=== PATIENT | female | born 1985 | race Caucasian/White ===

== ENCOUNTER 2016-11-27 19:50 | Emergency (ER) | payer OTHER ==
[~2016-11-27] VITALS: Ht 165.1 cm; Wt 124.7 kg
[~2016-11-27 19:50] MED LIST: ACET1TAB43 PO; ACHD5005 PO; CLIN300C3 PO; CYCL10TA9 PO; HYDR-3812 PO; HYDR1TAB8 OP; IBP800T PO; IBUP-1773 PO; METH4TAB PO; NAPR220C11 PO; PNV91TAB3 PO; SULF1TAB38 PO
--- NOTE | 2016-11-27 20:04 | ED GI ---
General Chief Complaint: Abdominal/GI Problems Stated Complaint: NAUSEA Source of Information: Patient Exam Limitations: No Limitations History of Present Illness Time Seen By Provider: 20:02 Initial Comments Patient has been nauseated all day. She is vomited twice. She denies diarrhea or abdominal pain. She states she has had problems with nausea for the past 2 weeks. She has not seen a primary care physician. She took pnwa-[id number] nausea relief without any improvement Allergies and Home Medications Allergies Coded Allergies: No Known Drug Allergies (Unverified , 01/05/10) Home Medications No Active Prescriptions or Reported Meds Review of Systems Constitutional: malaise, weakness EENTM: No Symptoms Reported Respiratory: No Symptoms Reported Cardiovascular: No Symptoms Reported Gastrointestinal: Nausea, Vomiting Endocrine: No Symptoms Reported All Other Systems Reviewed Negative Unless Noted: Yes Past Jxdohsh-Ziwnpk-Luyxei Hx Patient Social History Type Used: Cigarettes Recent Foreign Travel: No Contact w/Someone Who Travel: No Recent Hopitalizations: No Seasonal Allergies Seasonal Allergies: No Surgeries HX Surgeries: Yes (BREAST REDUCTION) Surgeries: Breast Respiratory Hx Respiratory Disorders: No Cardiovascular Hx Cardiac Disorders: No Neurological Hx Neurological Disorders: Yes Neurological Disorders: Headaches /Migraines Reproductive System Hx Reproductive Disorders: Yes (high levels of testosterone.) Female Reproductive Disorders: Ovarian Cyst, Polycystic Ovarian Dis Genitourinary Hx Genitourinary Disorders: No Gastrointestinal Hx Gastrointestinal Disorders: No Musculoskeletal Hx Musculoskeletal Disorders: Yes (HAS HAD BACK SPASM/PAIN IN PAST) Endocrine Hx Endocrine Disorders: No HEENT HX ENT Disorders: No Cancer Hx Cancer: No Psychosocial Hx Psychiatric Problems: No Integumentary HX Skin/Integumentary Disorder: No Reviewed Nursing Assessment Reviewed/Agree w Nursing PMH: Yes Family Medical History Significant Family History: No Pertinent Family Hx Physical Exam Vital Signs VS - Last 72 Hours, by Label 11/27/16 20:00 Temp 97.3 Pulse 92 Resp 18 B/P (MAP) 145/93 Pulse Ox 95 O2 Delivery Room Air Capillary Refill : General Appearance: WD/WN, mild distress HEENT: PERRL/EOMI, pharynx normal Neck: supple Respiratory: lungs clear, normal breath sounds Cardiovascular: regular rate, rhythm, no edema Gastrointestinal: non tender, soft Extremities: normal inspection Neurologic/Psychiatric: alert, normal mood/affect Skin: normal color, warm/dry Progress/Results/Core Measures Results/Orders Lab Results Laboratory Tests Test 11/27/16 20:00 11/27/16 20:06 11/27/16 21:05 Range/Units White Blood Count 12.5 H 4.3-11.0 10^3/uL Red Blood Count 4.71 4.35-5.85 10^6/uL Hemoglobin 12.9 11.5-16.0 G/DL Hematocrit 40 35-52 % Mean Corpuscular Volume 84 80-99 FL Mean Corpuscular Hemoglobin 27 25-34 PG Mean Corpuscular Hemoglobin Concent 33 32-36 G/DL Red Cell Distribution Width 14.6 H 10.0-14.5 % Platelet Count 326 130-400 10^3/uL Mean Platelet Volume 10.5 H 7.4-10.4 FL Neutrophils (%) (Auto) 87 H 42-75 % Lymphocytes (%) (Auto) 8 L 12-44 % Monocytes (%) (Auto) 4 0-12 % Eosinophils (%) (Auto) 1 0-10 % Basophils (%) (Auto) 0 0-10 % Neutrophils # (Auto) 10.9 H 1.8-7.8 X 10^3 Lymphocytes # (Auto) 1.0 1.0-4.0 X 10^3 Monocytes # (Auto) 0.6 0.0-1.0 X 10^3 Eosinophils # (Auto) 0.1 0.0-0.3 10^3/uL Basophils # (Auto) 0.0 0.0-0.1 10^3/uL Neutrophils % (Manual) 89 % Lymphocytes % (Manual) 10 % Monocytes % (Manual) 0 % Eosinophils % (Manual) 1 % Basophils % (Manual) 0 % Band Neutrophils 0 % Blood Morphology Comment NORMAL Sodium Level 138 135-145 MMOL/L Potassium Level 3.9 3.6-5.0 MMOL/L Chloride Level 107 98-107 MMOL/L Carbon Dioxide Level 22 21-32 MMOL/L Anion Gap 9 5-14 MMOL/L Blood Urea Nitrogen 8 7-18 MG/DL Creatinine 0.70 0.60-1.30 MG/DL Estimat Glomerular Filtration Rate > 60 BUN/Creatinine Ratio 11 Glucose Level 114 H 70-105 MG/DL Calcium Level 8.8 8.5-10.1 MG/DL Total Bilirubin 0.6 0.1-1.0 MG/DL Aspartate Amino Transf (AST/SGOT) 21 5-34 U/L Alanine Aminotransferase (ALT/SGPT) 34 0-55 U/L Alkaline Phosphatase 90 40-136 U/L Total Protein 6.9 6.4-8.2 G/DL Albumin 4.1 3.2-4.5 G/DL Lipase 22 8-78 U/L Serum Test, Qualitative NEGATIVE NEGATIVE Urine Color YELLOW Urine Clarity SLIGHTLY CLOUDY Urine pH 8 5-9 Urine Specific Winn 1.010 L 1.016-1.022 Urine Protein 1+ H NEGATIVE Urine Glucose (UA) NEGATIVE NEGATIVE Urine Ketones NEGATIVE NEGATIVE Urine Nitrite NEGATIVE NEGATIVE Urine Bilirubin NEGATIVE NEGATIVE Urine Urobilinogen 1 NORMAL MG/DL Urine Leukocyte Esterase 2+ H NEGATIVE Urine RBC (Auto) NEGATIVE NEGATIVE Urine RBC NONE /HPF Urine WBC 10-25 H /HPF Urine Squamous Epithelial Cells 25-50 H /HPF Urine Crystals NONE /LPF Urine Bacteria MODERATE H /HPF Urine Casts NONE /LPF Urine Mucus MODERATE H /LPF Urine Yeast FEW H /HPF Urine Culture Indicated YES My Orders Orders - SHASHA LR MD Lipase (11/27/16 20:01) Ua Culture If Indicated (11/27/16 20:01) Urine Bedside (11/27/16 20:01) Ns Iv 1000 Ml (Sodium Chloride 0.9%) (11/27/16 20:15) Prochlorperazine Injection (Compazine In (11/27/16 20:15) Diphenhydramine Injection (Benadryl Inje (11/27/16 20:15) Hcg,Qualitative Serum (11/27/16 20:23) Urine Culture (11/27/16 21:05) Medications Given in ED Current Medications Medications Dose Ordered Sig/Erendira Route Start Time Stop Time Status Last Admin Dose Admin Diphenhydramine HCl 25 mg ONCE ONCE IV 11/27/16 20:15 11/27/16 20:16 DC 11/27/16 20:10 25 MG Prochlorperazine Edisylate 10 mg ONCE ONCE IV 11/27/16 20:15 11/27/16 20:16 DC 11/27/16 20:10 10 MG Sodium Chloride 1,000 ml ONCE ONCE IV 11/27/16 20:15 11/27/16 20:16 DC 11/27/16 20:10 1,000 ML Vital Signs/I&O Vital Sign - Last 12Hours 4/23/17 20:00 Temp 97.3 Pulse 92 Resp 18 B/P (MAP) 145/93 Pulse Ox 95 O2 Delivery Room Air Progress Note : Time: 21:35 Progress Note Patient feeling much better after IV fluids and Zofran. Advised of test results. We'll treat with antibiotics and antiemetics. Follow-up primary care physician next week. Departure Impression Impression: Primary Impression: Nausea and vomiting Additional Impressions: Gastritis Urinary tract infection Disposition: HOME, SELF-CARE Condition: Stable Departure-Patient Inst. Decision time for Depature: 21:35 Referrals: [facility] (PCP/Family) Primary Care Physician Scripts Ondansetron (Zofran Odt) 4 Mg Tab.rapdis 4 MG PO Q4H Y for NAUSEA/VOMITING-1ST LINE, #10 TAB Prov: SHASHA LR MD 11/27/16 Nitrofurantoin Monohyd/M-Cryst (Macrobid 100 mg Capsule) 100 Mg Capsule 1 TAB PO BID, #6 CAP Prov: SHASHA LR MD 11/27/16 SHASHA LR MD Nov 27, 2016 20:04
[2016-11-27] MEDS ORDERED: diphenhydrAMINE 50 MG/ML INJ (BENADRYL) IV ONE (20:15)
[2016-11-27] MEDS ORDERED: NS 1000 ML IV BAG IV ONE (20:15)
[2016-11-27] MEDS ORDERED: PROCHLORPERAZINE 10 MG/2ML INJ (COMPAZINE) IV ONE (20:15)
[2016-11-27 20:16] LABS: BASOPHILS % (AUTO) 0 % (0-10); EOSINOPHILS # (AUTO) 0.1 10^3/uL (0.0-0.3); EOSINOPHILS % (AUTO) 1 % (0-10); LYMPHOCYTES % (AUTO) 8 % (12-44); MEAN CORPUSCULAR HEMOGLOBIN 27 PG (25-34); MEAN CORPUSCULAR HGB CONC 33 G/DL (32-36); MEAN CORPUSCULAR VOLUME 84 FL (80-99); MEAN PLATELET VOLUME 10.5 FL (7.4-10.4); MONOCYTES # (AUTO) 0.6 X 10^3 (0.0-1.0); MONOCYTES % (AUTO) 4 % (0-12); NEUTROPHILS # (AUTO) 10.9 X 10^3 (1.8-7.8); NEUTROPHILS % (AUTO) 87 % (42-75); PLATELET COUNT 326 10^3/uL (130-400); RED BLOOD COUNT 4.71 10^6/uL (4.35-5.85); RED CELL DISTRIBUTION WIDTH 14.6 % (10.0-14.5); WHITE BLOOD COUNT 12.5 10^3/uL (4.3-11.0)
[2016-11-27 20:34] LABS: BAND NEUTROPHILS 0 %; BASOPHILS % (MANUAL) 0 %; EOSINOPHILS % (MANUAL) 1 %; LYMPHOCYTES % (MANUAL) 10 %; NEUTROPHILS % (MANUAL) 89 %
[2016-11-27 20:39] LABS: ALANINE AMINOTRANSFERASE 34 U/L (0-55); ALBUMIN 4.1 G/DL (3.2-4.5); ANION GAP 9 MMOL/L (5-14); ASPARTATE AMINO TRANSFERASE 21 U/L (5-34); BILIRUBIN,TOTAL 0.6 MG/DL (0.1-1.0); BLOOD UREA NITROGEN 8 MG/DL (7-18); BUN/CREATININE RATIO 11; CALCIUM 8.8 MG/DL (8.5-10.1); CARBON DIOXIDE 22 MMOL/L (21-32); CHLORIDE 107 MMOL/L (98-107); GFR ESTIMATED > 60; GLUCOSE 114 MG/DL (70-105); LIPASE 22 U/L (8-78); POTASSIUM 3.9 MMOL/L (3.6-5.0); SODIUM 138 MMOL/L (135-145); TOTAL PROTEIN 6.9 G/DL (6.4-8.2)
[2016-11-27 21:14] LABS: BILIRUBIN,URINE NEGATIVE (NEGATIVE); KETONES,URINE NEGATIVE (NEGATIVE); LEUKOCYTE ESTERASE ,URINE 2+ (NEGATIVE); NITRITE,URINE NEGATIVE (NEGATIVE); PH,URINE 8 (5-9); PROTEIN,URINE 1+ (NEGATIVE); UROBILINOGEN,URINE 1 MG/DL (NORMAL)
[2016-11-27 21:22] LABS: SQUAMOUS EPITHELIAL CELL,UR 25-50 /HPF; YEAST,URINE FEW /HPF
[2016-11-27] MEDS ORDERED: NITR-65 PO (21:36)
[2016-11-27] MEDS ORDERED: ONDA4TAB8 PO (21:36)
[2016-11-27] MEDS ORDERED: RX-ONDANSETRON 4 MG ODT (ZOFRAN) PPK #4 PO STA (21:38)
[2016-11-27] MEDS ORDERED: LEVOFLOXACIN 500 MG TAB (LEVAQUIN) PO ONE (21:45)
[2016-11-27 21:48] VITALS: BP 134/88
== END 2016-11-27 21:48 | disposition home or self-care (01) ==
LOC: EDUNIT# 19:50 → ER 19:52
DX: R11.2 Nausea with vomiting, unspecified (principal); K29.70 Gastritis, unspecified, without bleeding; N39.0 Urinary tract infection, site not specified
CPT/HCPCS: 36415; 80053; 81000; 83690; 84703; 85007; 85027; 87088; 96361; 96374; 96375

== ENCOUNTER → 2017-04-03 | Outpatient (CLI) | payer OTHER ==
[~2017-04-03] MED LIST changes: +NITR-65 PO; +ONDA4TAB8 PO
--- NOTE | 2017-04-03 13:56 | Diagnostic Imaging Report ---
PROCEDURE: US Abdomen, limited. TECHNIQUE: Multiple realtime grayscale images were obtained over the abdomen in various projections. INDICATION: Right upper quadrant pain. FINDINGS: The liver is normal in size without focal lesions. There is cholelithiasis. Gallbladder wall thickness is 2.4 mm. The common bile duct is not well seen due to bowel gas nor is the pancreas. The right kidney is normal. There is no ascites. IMPRESSION: Cholelithiasis. Dictated by: Dictated on workstation # [id number]
== END ==
LOC: RAD 08:01
PROVIDERS: ATTEND Nurse Practitioner Family
DX: K80.20 Calculus of gallbladder without cholecystitis without obstruction (principal)
CPT/HCPCS: 76705

== ENCOUNTER 2017-04-11 09:42 | Outpatient (CLI) | payer OTHER ==
[~2017-04-11] VITALS: Ht 165.1 cm; Wt 111.7 kg
[2017-04-11] MEDS ORDERED: BCP PO (09:52)
[2017-04-11 09:55] VITALS: BP 137/87
[2017-04-11 10:24] LABS: BASOPHILS # (AUTO) 0.1 10^3/uL (0.0-0.1); BASOPHILS % (AUTO) 1 % (0-10); EOSINOPHILS # (AUTO) 0.2 10^3/uL (0.0-0.3); EOSINOPHILS % (AUTO) 2 % (0-10); LYMPHOCYTES # (AUTO) 2.4 X 10^3 (1.0-4.0); LYMPHOCYTES % (AUTO) 23 % (12-44); MEAN CORPUSCULAR HEMOGLOBIN 27 PG (25-34); MEAN CORPUSCULAR HGB CONC 32 G/DL (32-36); MEAN CORPUSCULAR VOLUME 84 FL (80-99); MEAN PLATELET VOLUME 10.4 FL (7.4-10.4); MONOCYTES # (AUTO) 0.8 X 10^3 (0.0-1.0); MONOCYTES % (AUTO) 7 % (0-12); NEUTROPHILS # (AUTO) 7.1 X 10^3 (1.8-7.8); NEUTROPHILS % (AUTO) 68 % (42-75); PLATELET COUNT 328 10^3/uL (130-400); RED BLOOD COUNT 4.65 10^6/uL (4.35-5.85); RED CELL DISTRIBUTION WIDTH 14.3 % (10.0-14.5); WHITE BLOOD COUNT 10.5 10^3/uL (4.3-11.0)
[2017-04-13] MEDS ORDERED: HYDR-3816 PO (16:05)
== END 2017-04-11 11:11 | disposition home or self-care (01) ==
LOC: PREOP 09:42
PROVIDERS: ATTEND Surgery
DX: Z01.812 Encounter for preprocedural laboratory examination (principal); K80.20 Calculus of gallbladder without cholecystitis without obstruction
CPT/HCPCS: 36415; 85025; 87081

== ENCOUNTER 2017-04-13 11:26 | Day surgery (SDC) | payer OTHER ==
[~2017-04-13] VITALS: Ht 165.1 cm; Wt 111.7 kg
[~2017-04-13 11:26] MED LIST changes: +BCP PO
[2017-04-13] MEDS ORDERED: LACTATED RINGERS 1,000 ML IV PRN (11:29)
--- OUTSIDE RECORDS SUMMARY | 2017-04-13 11:29 | XMS REPORT | Clinical Summary ---
Author Author [facility] Organization [facility] Address Unknown Phone Unavailable Care Team Providers Care Bottle Gauger Name Role Phone PCP Unavailable Source Comments Some departments are not documenting in the electronic medical record. If you do not see the information that you expected, contact Release of Information in the Health Information Management department at [phone] for further assistance in locating additional records.[facility] Allergies No Known Allergies Current Medications Prescription Sig. Disp. Refills Start End Date Status Date NO HOME MEDICATIONS Active Active Problems Not on file Social History Tobacco Use Types Packs/Day Years Used Date Former Smoker Cigarettes 0.5 12 Quit: 11/30/2009 Alcohol Use Drinks/Week oz/Week Comments Yes seldom Sex Assigned at Date Recorded Not on file Last Filed Vital Signs Vital Sign Reading Time Taken Blood Pressure 114/70 12/11/2009 6:00 PM CDT Pulse 61 12/11/2009 6:00 PM CDT Temperature 36.7 C (98.1 F) 12/11/2009 2:20 PM CDT Respiratory Rate - - Oxygen Saturation 96% 12/11/2009 6:00 PM CDT Inhaled Oxygen - - Concentration Weight 93.9 kg (207 lb) 12/11/2009 11:00 AM CDT Height 165.1 cm (5' 5") 12/11/2009 11:00 AM CDT Body Mass Index 34.45 12/11/2009 11:00 AM CDT Plan of Treatment Health Maintenance Due Date Last Done Comments PHYSICAL (COMPREHENSIVE) 1991 EXAM PERTUSSIS VACCINE 1995 TETANUS VACCINE 2001 CERVICAL CANCER SCREENING 2014 INFLUENZA VACCINE 04/07/2017 Results Not on filefrom Last 3 Months
[2017-04-13] MEDS ORDERED: ONDANSETRON 4 MG/2 ML (SDV) Z0FRAN ONE (12:09)
[2017-04-13] MEDS ORDERED: DEXAMETHASONE 10 MG/ML (DECADRON) 1 ML VIAL ONE (12:09)
[2017-04-13] MEDS ORDERED: LIDOCAINE PF 2% 5 ML (XYLOCAINE) VIAL ONE (12:09)
[2017-04-13] MEDS ORDERED: ROCURONIUM 50 MG/5 ML (ZEMURON) VIAL IV ONE (12:09)
[2017-04-13] MEDS ORDERED: proPOfol 200 MG/20 ML (DIPRIVAN) VIAL IV ONE (12:09)
[2017-04-13] MEDS ORDERED: LACTATED RINGERS 1,000 ML IV ONE ×2 (12:09→15:49)
[2017-04-13] MEDS ORDERED: SEVOFLURANE (ULTANE) 15 ML INHAL SOLN ONE ×4 (12:09→15:49)
[2017-04-13] MEDS ORDERED: MIDAZOLAM 2 MG/2 ML (VERSED) VIAL ONE (12:10)
[2017-04-13] MEDS ORDERED: fentaNYL INJECTION 100 MCG/2 ML AMP ONE ×2 (12:10→14:59)
--- NOTE | 2017-04-13 12:22 | Progress Note-Pre Operative ---
Pre-Operative Progress Note H&P Reviewed The H&P was reviewed, patient examined and no changes noted. Date Seen by Provider: Apr 13, 2017 Time Seen by Provider: 12:20 Date H&P Reviewed: Apr 13, 2017 Time H&P Reviewed: 12:20 Pre-Operative Diagnosis: symptomatic cholelithiasis ITA JUNG MD Apr 13, 2017 12:22 pm
[2017-04-13] MEDS ORDERED: ACETAMINOPHEN 325 MG TABLET/CAPLET (TYLENOL) PO PRN (12:30)
[2017-04-13] MEDS ORDERED: HYDROcodone/APAP 5 MG/325 MG (LORTAB) TAB PO ONE (12:30)
[2017-04-13] MEDS ORDERED: ONDANSETRON 4 MG/2 ML (SDV) Z0FRAN IVP PRN ×2 (12:30→16:00)
[2017-04-13] MEDS ORDERED: morphine INJ 10 MG/ML 1ML (SYR OR VIAL) IVP PRN (12:30)
[2017-04-13] MEDS ORDERED: NS (IVPB) 50 ML ONE (12:52)
[2017-04-13] MEDS ORDERED: ceFAZolin 1,000 MG (ANCEF) VIAL ONE (12:52)
[2017-04-13] MEDS ORDERED: BUP/EPI 0.5% 1:200,000 (MARCAINE) 10ML VIAL IJ ONE (12:56)
[2017-04-13] MEDS ORDERED: fentaNYL INJECTION 100 MCG/2 ML AMP IV ONE (13:00)
[2017-04-13 13:17] VITALS: BP 143/96
[2017-04-13] MEDS ORDERED: NEOSTIGMINE (BLOXIVERZ ) 1 MG/1ML 10 ML VIAL ONE (15:33)
[2017-04-13] MEDS ORDERED: GLYCOPYRROLATE 0.2 MG/ML (ROBINUL) 2 ML VIAL ONE (15:33)
[2017-04-13] MEDS ORDERED: morphine INJ 10 MG/ML 1ML (SYR OR VIAL) ONE (15:40)
[2017-04-13] MEDS ORDERED: KETOROLAC 30 MG/ML VIAL IVP ONE (16:00)
[2017-04-13] MEDS ORDERED: HYDROmorphone (DILAUDID) 2 MG/ML VIAL IVP PRN (16:00)
--- NOTE | 2017-04-13 16:03 | Progress Note-Post Operative ---
Post-Operative Progess Note Surgeon (s)/Benzol Operator (s) Surgeon ITA JUNG MD Benzol Operator: kurtis harris DIRECT CASTING OPERATOR Pre-Operative Diagnosis symptomatic cholelithiasis Post-Operative Diagnosis same Procedure & Operative Findings Date of Procedure 04/13/17 Procedure Performed/Findings laparoscopic cholecystectomy Anesthesia Type GET Estimated Blood Loss Estimated blood loss (mL): minimal Specimens/Packing Specimens Removed gallbladder ITA JUNG MD Apr 13, 2017 16:03
[2017-04-13] MEDS: morphine INJ 10 MG/ML 1ML (SYR OR VIAL) IVP PRN ×2 (16:05→16:13)
[2017-04-13] MEDS ORDERED: HYDR-3816 PO (16:05)
--- NOTE | 2017-04-13 16:06 | Discharge Inst-Surgical ---
D/C Lap Instructions-FABIANA New, Converted, or Re-Newed RX: RX on Chart Follow Up Appt in 2 weeks Activity as tolerated No driving for 24 hours No driving while on pain medications Incentive Spirometry use every 2 hours while awake Regular Diet Symptoms to Report: Fever over 101 degree F, Nausea/Vomiting Infection Signs and Symptoms to report: Increased redness, Foul odor of wound, Increased drainage Bathing instructions: May shower Operative Area Clean/Dry; Keep incision clean/dry If any problems/questions: Contact your physician or go to Emergency Room ITA JUNG MD Apr 13, 2017 16:06
[2017-04-13] MEDS ORDERED: HYDROmorphone (DILAUDID) 2 MG/ML VIAL ONE (16:15)
[2017-04-13 16:50] VITALS: BP 126/78
[2017-04-13] MEDS ORDERED: HYDROcodone/APAP 5 MG/325 MG (LORTAB) TAB ONE (17:19)
[2017-04-13 17:20] VITALS: BP 122/75
[2017-04-13 18:00] VITALS: BP 135/88
[2017-04-13 18:19] VITALS: BP 135/88
--- NOTE | 2017-04-13 22:29 | OPERATIVE REPORT ---
DATE OF SERVICE: 04/13/2017 ATTENDING PHYSICIAN: Dr. Jason Acuña. PREOPERATIVE DIAGNOSIS: Chronic calculus cholecystitis. POSTOPERATIVE DIAGNOSIS: Chronic calculus cholecystitis. PROCEDURE: Laparoscopic cholecystectomy. SURGEON: Dr. Jung. BRAZING FURNACE OPERATOR: Ricco Blanco APRN. ANESTHESIA: General endotracheal. ESTIMATED BLOOD LOSS: Minimal. FINDINGS: Mild chronic gallbladder wall inflammation with a single solitary stone. DISPOSITION: The patient tolerated the procedure well. INDICATIONS: The patient is a 31-year-old female who is referred over to us for epigastric as well as right upper abdominal quadrant pain with radiation towards the back. This began around three months ago and has persisted to a dull ache. She also reports associated episodes of nausea and diarrhea. She reports that the pain does occur on an intermittent basis but usually after a meal. She had an ultrasound performed and was found to have gallstones. DESCRIPTION OF PROCEDURE: The patient was brought to the operating room, laid supine on the table. After adequate IV pain and sedative medications and general endotracheal intubation, the abdomen was prepped and draped in standard surgical fashion. 0.5% Marcaine with epinephrine was then used to anesthetize the overlying skin, the left upper abdominal quadrant. A small transverse skin incision made using a 15 blade. An 0 silk suture was applied to the medial aspect of the incision for retraction and a Veress needle inserted with a low opening pressure of 0 mmHg. The Veress needle removed and a 5 mm Xcel trocar placed followed by a 5 mm 45 degree angle laparoscope visualizing the peritoneal cavity. 0.5% Marcaine with epinephrine was then used to anesthetize the overlying skin in the left upper abdominal quadrant and a small transverse skin incision made using a 15 blade. An 0 silk suture was applied to the medial aspect of the incision for retraction and a Veress needle inserted with a low opening pressure of 0 mmHg pressure. The Veress needle removed and a 5 mm Xcel trocar placed followed by a 5 mm 45 degree angle laparoscope visualizing the peritoneal cavity. A four quadrant abdominal exploration was performed. There was chronic gallbladder wall inflammation. What was visualized of the omentum, stomach and small bowel appeared normal. Under direct visualization, we then proceeded to place a supraumbilical 10 mm port after the skin and peritoneum were anesthetized using 0.5% Marcaine with epinephrine and a transverse skin incision made using a 15 blade. In a similar fashion, a 5 mm right upper abdominal quadrant port was placed. The patient was then placed in reverse Trendelenburg position as well as plane right side up, left side down. The fundus of the gallbladder was then retracted anteriorly and superiorly. The hepatoduodenal ligament was then opened using blunt dissection as well as electrocautery on the hook instrument. The entire critical view of safety was identified including the triangle of Calot as well as the cystic duct and artery going into the gallbladder as well as the liver behind the proximal gallbladder. The cystic duct and artery were then clipped proximally, distally and cut with EndoShears. The gallbladder was then dissected off the liver bed using electrocautery on the hook instrument with visualization of good hemostasis as well as no leaking ducts of Luschka. The gallbladder was removed through the 10 mm port site using an EndoCatch bag. The fascia and peritoneum to the 10 mm port site were then closed using a Arsalan-Regina device and 0 Vicryl suture. The abdomen was desufflated and remaining ports removed. All skin incisions were closed using 4-0 Monocryl running subcuticular sutures. Wounds were then cleaned and covered with Dermabond. The patient tolerated the procedure well. We will start IV normal pain medication as well as a clear liquid diet. Once she is tolerating clears and has good pain control with oral pain medication and is ambulating well, we will discharge her home. Job ID: [id number] DocumentID: [id number] Dictated Date: 04/13/2017 15:57:08 Financial Center Manager Date: 04/13/2017 20:33:09 Dictated By: ITA JUNG MD MTDD
== END 2017-04-13 18:17 | disposition home or self-care (01) ==
LOC: SDC 11:26
PROVIDERS: ATTEND Surgery
DX: K80.12 Calculus of gallbladder with acute and chronic cholecystitis without obstruction (principal); F17.210 Nicotine dependence, cigarettes, uncomplicated
CPT/HCPCS: 84703; 94664

== ENCOUNTER 2018-05-21 05:53 | Emergency (ER) | payer OTHER ==
[~2018-05-21] VITALS: Ht 165.1 cm; Wt 102.1 kg
[~2018-05-21 05:53] MED LIST changes: +HYDR-34 PO; -HYDR-3812 PO
[2018-05-21] MEDS ORDERED: HYDR-3816 (06:21)
[2018-05-21] MEDS ORDERED: KETOROLAC 60 MG/2 ML VIAL IM STA (06:38)
[2018-05-21] MEDS ORDERED: diphenhydrAMINE 50 MG/ML INJ (BENADRYL) IM ONE (06:45)
[2018-05-21] MEDS ORDERED: cefTRIAXone 1 GM/10 ML for IV (ROCEPHIN) IM ONE (06:45)
[2018-05-21] MEDS ORDERED: LIDOCAINE 1% INJ 20 ML 20 ML VIAL INJ ONE (06:45)
[2018-05-21] MEDS ORDERED: LIDOCAINE 2% VISCOUS 15 ML UDC MM ONE (06:45)
--- NOTE | 2018-05-21 06:45 | ED EENT ---
History of Present Illness General Chief Complaint: Dental Problems/Pain Stated Complaint: DENTAL PAIN Nursing Triage Note: dental pain, headache Source: patient, other (MALE S.O.O) History of Present Illness Date Seen by Provider: May 21, 2018 Time Seen by Provider: 06:30 Initial Comments PT ARRIVES VIA POV C/O DENTAL PAIN ONGOING PROBLEMS WITH MULTIPLE TEETH, BUT PAIN TO RIGHT UPPER MOLAR WITH SEVERE PAIN FOR A COUPLE OF WEEKS HAS BEEN TO [facility] A WEEK AGO, AND WAS GIVEN RX FOR AMOXIL 500 MG WHICH SHE FINISHED RX FOR HYDROCODONE CALLED IN ON Monday05/18/18--NOT HELPING, LAST DOSE 0300 THIS AM HAS FOLLOW UP APPOINTMENT 05/28/18--PT STATES FOR ROOT CANAL OR EXTRACTION STATES PAIN IS GIVING HER A HEADACHE AND MAKING THE WHOLE RIGHT SIDE OF HER FACE HURT NO SWELLING TO FACE NO FEVER STATES SHE WAS UP ALL NIGHT DUE TO PAIN PCP: DR FELIX Allergies and Home Medications Allergies Coded Allergies: No Known Drug Allergies (Unverified , 04/11/17) Patient Home Medication List Home Medication List Reviewed: Yes Review of Systems Review of Systems Constitutional: no symptoms reported Eyes: No Symptoms Reported Ears: No Symptoms Reported Nose: no symptoms reported Mouth: see HPI Throat: no symptoms reported Respiratory: no symptoms reported Cardiovascular: no symptoms reported Gastrointestinal: no symptoms reported : No (NO CONTROL) LMP: May 01, 2018 Musculoskeletal: no symptoms reported Skin: no symptoms reported Neurological: See HPI, Anxiety, Headache Hematologic/Lymphatic: No Symptoms Reported Immunological/Allergic: no symptoms reported Past Plprhyo-Khhfee-Kikhao Hx Patient Social History Alcohol Use: Occasionally Uses Recreational Drug Use: Yes (THC) Smoking Status: Current Everyday Smoker (< 1 PPD) Type Used: Cigarettes 2nd Hand Smoke Exposure: Yes Recent Foreign Travel: No Contact w/Someone Who Travel: No Recent Infectious Disease Expo: No Recent Hopitalizations: No Immunizations Up To Date Tetanus Booster (TDap): Unknown Seasonal Allergies Seasonal Allergies: No Past Medical History Surgeries: Yes (BREAST REDUCTION, RIGHT SALPINGECTOMY; 2 UPPER WISDOM TEETH REMOVED) Breast, Gallbladder Respiratory: No Cardiac: No Neurological: Yes Headaches /Migraines : No Last Menstrual Period: May 01, 2018 Reproductive Disorders: Yes (high levels of testosterone.) Female Reproductive Disorders: Menstrual Problems, Ovarian Cyst, Polycystic Ovarian Dis Sexually Transmitted Disease: No HIV/AIDS: No Genitourinary: No Gastrointestinal: Yes Gastroesophageal Reflux, Chronic Constipation, Chronic Diarrhea, Gall Bladder Disease Musculoskeletal: Yes Chronic Back Pain Endocrine: No HEENT: Yes (CHRONIC DENTAL ISSUES) Loss of Vision: Denies Hearing Impairment: Denies Cancer: No Psychosocial: No Integumentary: No Blood Disorders: No Adverse Reaction/Blood Tranf: No Family Medical History No Pertinent Family Hx Physical Exam Vital Signs Vital Signs - First Documented 05/21/18 06:10 Temp 97.5 Pulse 81 Resp 18 B/P (MAP) 191/96 (127) Pulse Ox 98 O2 Delivery Room Air Height, Weight, BMI Height: 5'5.00" Weight: 225lbs. 0oz. 102.375542qu; 41.0 BMI Method:Stated General Appearance: WD/WN, other (CRYING UNCONTROLLABLY ; ODOR OF CIGARETTES) Eyes: bilateral eye normal inspection, bilateral eye PERRL, bilateral eye EOMI Ears: bilateral ear auricle normal, bilateral ear canal normal, bilateral ear TM normal Nose: No sinus tenderness; other (CONGESTED/CLEAR DRAINAGE--CRYING) Mouth/Throat: pharynx normal, dental tenderness; No excessive drooling, No mandibular swelling, No maxillary swelling; other (MULTIPLE DENTAL CARIES AND MISSING TEETH, INCLUDING FRONT TEETH MISSING. RIGHT UPPER 2ND MOLAR WITH DECAY AND MARKED TENDERNESS, MILD ADJACENT GUM INFLAMMATION. NO FACIAL TENDERNESS, ERYTHEMA OR SWELLING) Neck: non-tender, full range of motion, supple, normal inspection; No lymphadenopathy (R), No lymphadenopathy (L) Cardiovascular: regular rate, rhythm, no murmur Respiratory: normal breath sounds Neurologic/Psychiatric: moving picture operator II-XII nml as tested, no motor/sensory deficits, alert, oriented x 3 Skin: normal color, warm/dry Progress/Results/Core Measures Results/Orders My Orders Orders - HUNTER BURGOS DO Ketorolac Injection (Toradol Injection) (05/21/18 06:38) Rocephin 1000mg Im (05/21/18 06:45) Lidocaine 1% Inj 20 Ml (Xylocaine 1% Inj (05/21/18 06:45) Lidocaine 2% Viscous 15 Ml (Xylocaine Vi (05/21/18 06:45) Diphenhydramine Injection (Benadryl Inje (05/21/18 06:45) Vital Signs/I&O 05/21/18 06:10 Temp 97.5 Pulse 81 Resp 18 B/P (MAP) 191/96 (127) Pulse Ox 98 O2 Delivery Room Air Blood Pressure Mean: 127 Departure Impression Primary Impression: Dental caries Additional Impression: Pain, dental Disposition: HOME, SELF-CARE Condition: Stable Departure-Patient Inst. Referrals: MARIIA FELIX MD (PCP/Family) Primary Care Physician Patient Instructions: Dental Pain (DC), Tooth Decay, Adult (DC) Add. Discharge Instructions: FOLLOW UP WITH DENTIST THIS WEEK FOR FURTHER CARE All discharge instructions reviewed with patient and/or family. Voiced understanding. Scripts Lidocaine HCl (Lidocaine HCl Viscous) 15 Ml Solution 1-2 ML MM Q 1-2 HOURS for Pain, #100 ML Prov: HUNTER BURGOS DO 05/21/18 Naproxen (Naproxen) 500 Mg Tablet 500 MG PO BID, #20 TAB Prov: HUNTER BURGOS DO 05/21/18 Tramadol HCl (Ultram) 50 Mg Tablet 50 MG PO Q4H, #20 TAB Prov: HUNTER BURGOS DO 05/21/18 Clindamycin HCl (Clindamycin HCl) 300 Mg Capsule 300 MG PO QID for FOR INFECTION, #40 CAP Prov: HUNTER BURGOS DO 05/21/18 HUNTER BURGOS DO May 21, 2018 06:45
[2018-05-21] MEDS ORDERED: TRAM-42 PO (06:49)
[2018-05-21] MEDS ORDERED: LIDO15SO2 MM (06:49)
[2018-05-21] MEDS ORDERED: CLIN300C11 PO (06:49)
[2018-05-21] MEDS ORDERED: NAPR-915 PO (06:49)
[2018-05-21 07:03] VITALS: BP 191/96
== END 2018-05-21 07:03 | disposition home or self-care (01) ==
LOC: EDUNIT# 05:53 → ER 05:54
DX: K02.9 Dental caries, unspecified (principal); G43.909 Migraine, unspecified, not intractable, without status migrainosus; K21.9 Gastro-esophageal reflux disease without esophagitis; F12.10 Cannabis abuse, uncomplicated; F17.210 Nicotine dependence, cigarettes, uncomplicated; Z87.448 Personal history of other diseases of urinary system; Z87.19 Personal history of other diseases of the digestive system; Z90.721 Acquired absence of ovaries, unilateral
CPT/HCPCS: 96372; 99284

== ENCOUNTER 2021-10-31 15:15 | Emergency (ER) | payer OTHER ==
[~2021-10-31] VITALS: Ht 172 cm; Wt 118.0 kg
[~2021-10-31 15:15] MED LIST changes: +CLIN-144 PO; +HYDR-34; +LIDO20SO23 MM; +NAPR-915 PO; +TRAM-42 PO
--- NOTE | 2021-10-31 16:08 | ED Lower Extremity ---
General Chief Complaint: Lower Extremity Stated Complaint: FALL 10/20 - R LEG PAIN History of Present Illness Date Seen by Provider: Oct 31, 2021 Time Seen by Provider: 15:50 Initial Comments 36-year-old female presents for right leg pain. She reports on 10/20/2021 she was walking in her door when her dog went in front of her causing her to fall. She is unsure exactly what happened to the right leg she believes it was hit on the steps. She denies any head injury at the time of the fall. She has been a ble to ambulate with no discomfort. She is most concerned with persistent ecchymosis to the lower tib-fib and ankle region on the right. She has no previous history of injuries to her right leg. Onset: other (10/20/21) Pain/Injury Location: right leg, right ankle Method of Injury: fell Allergies and Home Medications Allergies Coded Allergies: No Known Drug Allergies (Unverified , 04/11/17) Patient Home Medication List Home Medication List Reviewed: Yes Clindamycin HCl (Clindamycin HCl) 300 Mg Capsule, 300 MG PO QID Prescribed by: HUNTER BURGOS on 05/21/18648 Hydrocodone Bit/Acetaminophen (HYDROcodone/APAP 7.5/325 TAB) 1 Each Tablet, (Reported) Entered as Reported by: BARBARA HEARD on 05/21/18620 Lidocaine HCl (Lidocaine HCl Viscous) 15 Ml Solution, 1-2 ML MM Q 1-2 HOURS Prescribed by: HUNTER BURGOS on 05/21/18648 Naproxen (Naproxen) 500 Mg Tablet, 500 MG PO BID Prescribed by: HUNTER BURGOS on 05/21/18648 Tramadol HCl (Ultram) 50 Mg Tablet, 50 MG PO Q4H Prescribed by: HUNTER BURGOS on 05/21/18648 Review of Systems Constitutional: no symptoms reported, see HPI Musculoskeletal: see HPI, muscle pain (right lower leg) All Other Systems Reviewed Negative Unless Noted: Yes Past Ppkonlo-Oqurtu-Mkoxuv Hx Immunizations Up To Date Tetanus Booster (TDap): Unknown Seasonal Allergies Seasonal Allergies: No Past Medical History Surgeries: Yes (BREAST REDUCTION, RIGHT SALPINGECTOMY; 2 UPPER WISDOM TEETH REMOVED) Breast, Gallbladder Respiratory: No Cardiac: No Neurological: Yes Headaches /Migraines Reproductive Disorders: Yes (high levels of testosterone.) Female Reproductive Disorders: Menstrual Problems, Ovarian Cyst, Polycystic Ovarian Dis Sexually Transmitted Disease: No HIV/AIDS: No Genitourinary: No Gastrointestinal: Yes Gastroesophageal Reflux, Chronic Constipation, Chronic Diarrhea, Gall Bladder Disease Musculoskeletal: Yes Chronic Back Pain Endocrine: No HEENT: Yes (CHRONIC DENTAL ISSUES) Loss of Vision: Denies Hearing Impairment: Denies Cancer: No Psychosocial: No Integumentary: No Blood Disorders: No Adverse Reaction/Blood Tranf: No Family Medical History Reviewed Nursing Family Hx No Pertinent Family Hx Physical Exam Vital Signs Vital Signs - First Documented 10/31/21 10/31/21 15:52 17:05 Temp 36.3 Pulse 82 Resp 18 B/P (MAP) 190/130 (150) Pulse Ox 96 O2 Delivery Room Air Capillary Refill : Height, Weight, BMI Height: 5'5.00" Weight: 225lbs. 0oz. 102.025103ep; 41.0 BMI Method:Stated General Appearance: WD/WN, no apparent distress Cardiovascular: normal peripheral pulses, regular rate, rhythm Hips: right hip non-tender, right hip normal inspection, right hip normal range of motion Legs: right leg other (ecchymosis, anterior lower leg) Knees: right knee non-tender, right knee normal inspection, right knee normal range of motion Ankles: right ankle normal range of motion, right ankle soft tissue tenderness, right ankle swelling, right ankle other (ecchymosis) Feet: right foot non-tender, right foot normal inspection, right foot normal range of motion Neurologic/Tendon: normal sensation, normal motor functions, normal tendon functions Neurologic/Psychiatric: no motor/sensory deficits, alert, normal mood/affect, oriented x 3 Skin: ecchymosis (right lower leg. ) neg homans. Ambulates with a steady gait, can put weight on right leg, non- tender Progress/Results/Core Measures Results/Orders My Orders Orders - CLAY EWING Tibia/Fibula, Right, 2 Views (10/31/21 15:56) Urine Bedside (10/31/21 16:00) Vital Signs/I&O 10/31/21 10/31/21 15:52 17:05 Temp 36.3 Pulse 82 72 Resp 18 18 B/P (MAP) 190/130 (150) 170/114 Pulse Ox 96 98 O2 Delivery Room Air Diagnostic Imaging Diagonstic Imaging: Xray Plain Films/CT/US/NM/MRI: leg Comments NAME: ALICIA GUNN [facility] REC#: [id number] PT STATUS: REG ER : 1985 PHYSICIAN: CLAY EWING ADMIT DATE: 10/31/21/ER Signed Date of Exam:10/31/21 TIBIA/FIBULA, RIGHT, 2 VIEWS INDICATION: One week post fall, bruising. TECHNIQUE: AP and lateral views of the right tibia and fibula CORRELATION STUDY: None FINDINGS: The tibia and fibula are intact. There is no evidence for acute fracture. Limited visualized portions of the knee and ankle are unremarkable. Soft tissues are unremarkable. IMPRESSION: 1.Negative for acute bony abnormality of the leg. Dictated by: Dictated on workstation # [id number] Dict: 10/31/211700 Trans: 10/31/211701 DO [id number] Interpreted by: LELE IBARRA DO Electronically signed by: LELE IBARRA DO 10/31/211701 Reviewed: Reviewed by Me Departure Impression Primary Impression: Contusion of right lower leg, initial encounter Disposition: HOME, SELF-CARE Condition: Improved Departure-Patient Inst. Decision time for Depature: 16:15 Referrals: EPHRAIM KENDALL MD NO,LOCAL PHYSICIAN (PCP) Primary Care Physician Patient Instructions: Contusion (DC) Add. Discharge Instructions: Apply ice to your right lower leg for 20 minutes every 2 hours while awake. Use Salo wrap until bruising and swelling resolved. Elevate your right lower leg for 20 minutes every hour. You may alternate between Tylenol 650 mg and ibuprofen 600 mg every 4 hours for pain. Keep your scheduled follow-up with your nurse practitioner for your blood pressure. Return to the emergency department for new, urgent healthcare needs. All discharge instructions reviewed with patient and/or family. Voiced understanding. CLAY EWING Oct 31, 2021 16:08
--- NOTE | 2021-10-31 17:03 | Diagnostic Imaging Report ---
INDICATION: One week post fall, bruising. TECHNIQUE: AP and lateral views of the right tibia and fibula CORRELATION STUDY: None FINDINGS: The tibia and fibula are intact. There is no evidence for acute fracture. Limited visualized portions of the knee and ankle are unremarkable. Soft tissues are unremarkable. IMPRESSION: 1.Negative for acute bony abnormality of the leg. Dictated by: Dictated on workstation # [id number]
[2021-10-31 17:05] VITALS: BP 170/114
== END 2021-10-31 17:05 | disposition home or self-care (01) ==
LOC: EDUNIT# 15:15 → ER 15:16
DX: S80.11XA Contusion of right lower leg, initial encounter (principal); W22.8XXA Striking against or struck by other objects, initial encounter
CPT/HCPCS: 73590; 84703

== ENCOUNTER 2022-01-07 13:52 | Emergency (ER) | payer OTHER ==
[~2022-01-07] VITALS: Ht 167.7 cm; Wt 114.8 kg
[~2022-01-07 13:52] MED LIST changes: +ACET-11 PO; -ACET1TAB43 PO
[2022-01-07] MEDS ORDERED: CYCLOBENZAPRINE 10 MG (FLEXERIL) TAB PO STA (14:16)
--- NOTE | 2022-01-07 14:23 | ED Back Pain ---
General Chief Complaint: Back Problems Stated Complaint: BACK PAIN Source of Information: Patient Exam Limitations: No Limitations History of Present Illness Date Seen by Provider: Jan 07, 2022 Time Seen by Provider: 13:53 Initial Comments 36-year-old female with past medical history of intermittent chronic back pain coming in due to low back pain. This episode started about 2 weeks ago, worsened overnight. It sharp, radiates down her right leg just to the knee. Denies any trauma. Feels similar to prior episodes which have happened over a dozen times. He tried hydrocodone and a Xanax last night to help get to sleep which belonged to one of her friends. She said this did help. Denies any fever, midline tenderness, trauma, history of diabetes, no back surgeries, no problems with bowel or bladder. She ambulates but with pain. She is otherwise denying any other acute complaints. Allergies and Home Medications Allergies Coded Allergies: No Known Drug Allergies (Unverified , 04/11/17) Patient Home Medication List Home Medication List Reviewed: Yes Clindamycin HCl (Clindamycin HCl) 300 Mg Capsule, 300 MG PO QID Prescribed by: HUNTER BURGOS on 05/21/18648 Hydrocodone Bit/Acetaminophen (HYDROcodone/APAP 7.5/325 TAB) 1 Each Tablet, (Reported) Entered as Reported by: BARBARA HEARD on 05/21/18620 Lidocaine HCl (Lidocaine HCl Viscous) 15 Ml Solution, 1-2 ML MM Q 1-2 HOURS Prescribed by: HUNTER BURGOS on 05/21/18648 Naproxen (Naproxen) 500 Mg Tablet, 500 MG PO BID Prescribed by: HUNTER BURGOS on 05/21/1849 Tramadol HCl (Ultram) 50 Mg Tablet, 50 MG PO Q4H Prescribed by: HUNTER BURGOS on 05/21/18648 Review of Systems Constitutional: No chills, No fever EENTM: No blurred vision Respiratory: no symptoms reported Cardiovascular: no symptoms reported Gastrointestinal: no symptoms reported Genitourinary: no symptoms reported Musculoskeletal: back pain Skin: no symptoms reported Psychiatric/Neurological: No Symptoms Reported All Other Systems Reviewed Negative Unless Noted: Yes Past Plvstja-Kteqfk-Omuwsi Hx Patient Social History Use of E-Cig and/or Vaping dev: Yes E-Cig or Vaping type used: Nicotine Immunizations Up To Date Tetanus Booster (TDap): Unknown Seasonal Allergies Seasonal Allergies: No Past Medical History Surgeries: Yes (BREAST REDUCTION, RIGHT SALPINGECTOMY; 2 UPPER WISDOM TEETH REMOVED) Breast, Gallbladder Respiratory: No Cardiac: No Neurological: Yes Headaches /Migraines Reproductive Disorders: Yes (high levels of testosterone.) Female Reproductive Disorders: Menstrual Problems, Ovarian Cyst, Polycystic Ovarian Dis Sexually Transmitted Disease: No HIV/AIDS: No Genitourinary: No Gastrointestinal: Yes Gastroesophageal Reflux, Chronic Constipation, Chronic Diarrhea, Gall Bladder Disease Musculoskeletal: Yes Chronic Back Pain Endocrine: No HEENT: Yes (CHRONIC DENTAL ISSUES) Loss of Vision: Denies Hearing Impairment: Denies Cancer: No Psychosocial: No Integumentary: No Blood Disorders: No Adverse Reaction/Blood Tranf: No Family Medical History No Pertinent Family Hx Physical Exam Vital Signs Capillary Refill : Height, Weight, BMI Height: 5'5.00" Weight: 225lbs. 0oz. 102.128501ls; 39.00 BMI Method:Stated General Appearance: No Apparent Distress, WD/WN HEENT: PERRL/EOMI, Normal ENT Inspection, Pharynx Normal Neck: Full Range of Motion, Normal Inspection, Non Tender, Supple Cardiovascular: Regular Rate, Rhythm, No Edema, Normal Peripheral Pulses Respiratory: Chest Non Tender, Lungs Clear, Normal Breath Sounds, No Accessory Muscle Use, No Respiratory Distress Gastrointestinal: Normal Bowel Sounds, Non Tender, Soft; No Distended, No Guarding Back: Normal Inspection, No CVA Tenderness, No Vertebral Tenderness, Other (right sided paravertebral tenderness, positive straight leg test, negative reverse straight leg test) Extremity: Normal Capillary Refill, Normal Inspection, Normal Range of Motion, Non Tender, No Calf Tenderness Neurologic/Psychiatric: Alert, No Motor/Sensory Deficits, Normal Mood/Affect Skin: Normal Color, Warm/Dry Lymphatic: No Adenopathy Progress/Results/Core Measures Results/Orders My Orders Orders - CHERRY MENDOZA MD Cyclobenzaprine Tablet (Flexeril Tablet) (01/07/22 14:16) Ketorolac Injection (Toradol Injection) (01/07/22 14:30) Acetaminophen Tablet (Tylenol Tablet) (01/07/22 14:30) Gabapentin Capsule/Tablet (Neurontin Cap (01/07/22 14:30) Progress Progress Note : Progress Note 36-year-old female coming in for acute on chronic low back pain. ABCs were intact and vitals were stable on presentation. She has no red flags for low back pain. In the absence of trauma we will forego any imaging. Neurologic exam is normal with normal bowel and bladder function. We will treat her symptomatically. She says steroid service helped in the past, we will prescribe, but I told her to be careful not to get this prescribed too often given the side effects. She is agreeable to this. I believe she is stable for discharge with outpatient follow-up. She was sent home with strict return precautions Departure Impression Primary Impression: Lumbar radiculopathy Disposition: HOME, SELF-CARE Condition: Stable Departure-Patient Inst. Decision time for Depature: 14:22 Referrals: VALERIE,LOCAL PHYSICIAN (PCP) Primary Care Physician SERVANDO CAMPOS APRN (Family) Primary Care Physician Patient Instructions: Radiculopathy (DC) Add. Discharge Instructions: Try to do some gentle stretching at home. Continue to use the heating pad which can help. I sent some lidocaine patches where you can put where you hurt most. Do not use heating pad if he has a patch on since she will have less ability to feel if you are getting burned. I have also sent some other medications for you to use if needed. Follow-up with your regular doctor if things are not improving in the next couple weeks. I suspect he will feel much better here shortly. Scripts Methylprednisolone (Methylprednisolone Dose Pack) 4 Mg Tab.ds.pk 4 MG PO UD for 6 Days, #21 PKG PER DOSE PACK INSTRUCTIONS Prov: CHERRY MENDOZA MD 01/07/22 Ibuprofen (Ibuprofen) 600 Mg Tablet 600 MG PO Q6H PRN for PAIN-MILD for 7 Days, #28 TAB Prov: CHERRY MENDOZA MD 01/07/22 Cyclobenzaprine HCl (Cyclobenzaprine HCl) 10 Mg Tablet 10 MG PO BID PRN for SPASMS for 7 Days, #14 TAB Prov: CHERRY MENDOZA MD 01/07/22 Tramadol HCl (Tramadol HCl) 50 Mg Tablet 50 MG PO Q6H PRN for PAIN for 3 Days, #12 TAB 0 Refills Prov: CHERRY MENDOZA MD 01/07/22 Lidocaine (Lidocaine 5% Patch) 5 % Adh..patch 1 EACH TP Q12H PRN for Neuropathic pain MDD 2 for 7 Days, #14 PATCH 2 patches max for 12 hours, then 12 hours patch-free period. Prov: CHERRY MENDOZA MD 01/07/22 Work/School Note: Work Release Form Date Seen in the Emergency Department: Jan 06, 2022 Return to Work: Jan 09, 2022 Restrictions: No Restrictions CHERRY MENDOZA MD Jan 07, 2022 14:23
[2022-01-07] MEDS ORDERED: METH4TAB10 PO (14:24)
[2022-01-07] MEDS ORDERED: IBUP-1773 PO (14:24)
[2022-01-07] MEDS ORDERED: TRM50T PO (14:24)
[2022-01-07] MEDS ORDERED: CYCL10TA25 PO (14:24)
[2022-01-07] MEDS ORDERED: LIDO700A45 TP (14:24)
[2022-01-07] MEDS ORDERED: GABAPENTIN 300 MG (NEURONTIN) CAP PO ONE (14:30)
[2022-01-07] MEDS ORDERED: KETOROLAC 30 MG/ML VIAL IM ONE (14:30)
[2022-01-07] MEDS ORDERED: ACETAMINOPHEN 500 MG TAB (TYLENOL) PO ONE (14:30)
[2022-01-07 15:00] VITALS: BP 147/95
== END 2022-01-07 14:37 | disposition home or self-care (01) ==
LOC: EDUNIT# 13:52 → ER 13:53
DX: M54.16 Radiculopathy, lumbar region (principal)
CPT/HCPCS: 99284

== ENCOUNTER 2022-05-12 19:26 | Observation (INO) | payer OTHER ==
[~2022-05-12] VITALS: Ht 165.1 cm; Wt 115.4 kg
[~2022-05-12 19:26] MED LIST changes: +CYCL10TA25 PO; +LIDO700A45 TP; +METH4TAB10 PO; +TRM50T PO
[2022-05-12] MEDS ORDERED: NITROGLYCERIN 0.4 MG SL TABS BTL 25'S SL PRN ×2 (19:30→23:45)
[2022-05-12] MEDS ORDERED: ASPIRIN 81 MG CHEW (CHILDREN'S ASA) PO ONE (19:30)
[2022-05-12 19:47] LABS: BASOPHILS # (AUTO) 0.1 10^3/uL (0.0-0.1); BASOPHILS % (AUTO) 1 % (0-10); EOSINOPHILS # (AUTO) 0.2 10^3/uL (0.0-0.3); EOSINOPHILS % (AUTO) 1 % (0-10); HEMATOCRIT 45 % (35-52); HEMOGLOBIN 14.9 g/dL (11.5-16.0); LYMPHOCYTES # (AUTO) 3.2 10^3/uL (1.0-4.0); LYMPHOCYTES % (AUTO) 22 % (12-44); MEAN CORPUSCULAR HEMOGLOBIN 29 pg (25-34); MEAN CORPUSCULAR HGB CONC 33 g/dL (32-36); MEAN CORPUSCULAR VOLUME 88 fL (80-99); MEAN PLATELET VOLUME 10.3 fL (9.0-12.2); MONOCYTES % (AUTO) 6 % (0-12); NEUTROPHILS # (AUTO) 10.4 10^3/uL (1.8-7.8); NEUTROPHILS % (AUTO) 70 % (42-75); PLATELET COUNT 345 10^3/uL (130-400); WHITE BLOOD COUNT 14.9 10^3/uL (4.3-11.0)
[2022-05-12] MEDS ORDERED: NITROGLYCERIN 2% OINT 1 GM UNIT DOSE PACKET TOP ONE (20:00)
[2022-05-12 20:03] LABS: ALANINE AMINOTRANSFERASE 45 U/L (0-55); ALBUMIN 4.6 GM/DL (3.2-4.5); ALKALINE PHOSPHATASE 101 U/L (40-136); AMYLASE 48 U/L (25-125); BILIRUBIN,TOTAL 0.5 MG/DL (0.1-1.0); BUN/CREATININE RATIO 9; CALCIUM 9.9 MG/DL (8.5-10.1); CARBON DIOXIDE 21 MMOL/L (21-32); CHLORIDE 103 MMOL/L (98-107); CREATINE KINASE 47 U/L (29-168); CREATININE SERUM 0.98 MG/DL (0.60-1.30); GFR ESTIMATED 76; GLUCOSE 118 MG/DL (70-105); LIPASE 28 U/L (8-78); MAGNESIUM 2.1 MG/DL (1.6-2.4); POTASSIUM 3.9 MMOL/L (3.6-5.0); SODIUM 139 MMOL/L (135-145); TOTAL PROTEIN 8.2 GM/DL (6.4-8.2)
[2022-05-12 20:12] LABS: CREATINE KINASE MB 0.3 NG/ML (<6.6)
--- NOTE | 2022-05-12 20:26 | Diagnostic Imaging Report ---
EXAM: CHEST 1 VIEW, AP/PA ONLY INDICATION: Chest pain. COMPARISON: None. FINDINGS: Normal heart size and central pulmonary vascularity. No focal pulmonary opacity. No pleural effusion or pneumothorax. No acute osseous findings. IMPRESSION: No acute cardiopulmonary findings. Dictated by: Dictated on workstation # [id number]
[2022-05-12] MEDS ORDERED: HOLD METFORMIN - RECEIVED CONTRAST 20 ML VIAL IV SCH (20:45)
[2022-05-12] MEDS ORDERED: IOHEXOL 350 MG/ML 100 ML (OMNIPAQUE 350) VIAL IV ONE (20:45)
[2022-05-12] MEDS ORDERED: hydrALAZINE (APESOLINE) 20 MG/ML VIAL IV ONE (20:45)
[2022-05-12] MEDS ORDERED: CATHETER FLUSH 10 ML SYR IV PRN (20:45)
[2022-05-12 20:58] LABS: AMPHETAMINE SCREEN, URINE NEGATIVE (NEGATIVE); BARBITURATE SCREEN URINE NEGATIVE (NEGATIVE); BENZODIAZEPINES SCREEN URINE NEGATIVE (NEGATIVE); CANNABINOID SCREEN, URINE POSITIVE (NEGATIVE); COCAINE SCREEN URINE NEGATIVE (NEGATIVE); METHADONE STAT NEGATIVE (NEGATIVE); OPIATE SCREEN URINE NEGATIVE (NEGATIVE); OXYCODONE STAT NEGATIVE (NEGATIVE); PROPOXYPHENE STAT NEGATIVE (NEGATIVE); TRICYCLIC ANTIDEPRESSANTS SCRE NEGATIVE (NEGATIVE)
--- NOTE | 2022-05-12 21:13 | Diagnostic Imaging Report ---
PROCEDURE: CT angiography of the chest with contrast. TECHNIQUE: Multiple contiguous axial images were obtained through the chest after uneventful bolus administration of intravenous contrast. 3D reconstructed CTA MIP acquisitions were also performed. Auto Exposure Controls were utilized during the CT exam to meet ALARA standards for radiation dose reduction. INDICATION: Chest pain. Shortness of breath. COMPARISON: Chest radiograph 05/12/2022. FINDINGS: Examination mildly limited by motion. No pulmonary artery filling defect. Normal caliber thoracic aorta. Normal heart size. No pericardial effusion. No mediastinal, hilar or axillary lymphadenopathy. The lungs are clear. No pleural effusion or pneumothorax. Osseous structures are intact. No acute finding in the visualized upper abdomen. Cholecystectomy. IMPRESSION: 1. No pulmonary emboli. 2. No acute CT finding in the chest. Dictated by: Dictated on workstation # [id number]
--- NOTE | 2022-05-12 21:22 | ED Cardiac General ---
History of Present Illness General Chief Complaint: Chest Pain Stated Complaint: CHEST PAIN Nursing Triage Note: PT TO RM 6 WITH CC OF CHEST PAIN THAT GOES DOWN HER L ARM WITH SOB. PT REPROTS WAS AT [employer]LLY[employer]ALL GAME AND HAD A YEE. PT TOOK MEDICINE FROM FRIEND AT GAME AND BEGAN TO HAVE CP. PT RATES CP /10 AND STATES NO HEART HX. Source: patient History of Present Illness Date Seen by Provider: May 12, 2022 Time Seen by Provider: 19:31 Initial Comments PT ARRIVES VIA POV WITH MALE STATES THAT AROUND 1800 SHE WAS AT A VOLLEYBALL GAME, AND HAD A HEADACHE, SOMEONE GAVE HER A SUMATRIPTAN ( PT HAS NEVER TAKEN BEFORE, AND NOT PRESCRIBED TO HER) AND PT IMMEDIATELY BEGAN HAVING SEVERE CHEST PAIN IN MID AND LEFT UPPER CHEST, RADIATING INTO HER BACK AND DOWN HER LEFT ARM EDWARDO IS SEVERE AT TIMES, RATES 6-7/10 NOW. PAIN WAXES AND WANES BUT DOES NOT GO AWAY. + SHORTNESS OF BREATH + SWEATS + DIZZINESS NO NAUSEA/VOMITING NO PARESTHESIAS OR MOTOR DEFICITS NO VISION CHANGES HEADACHE IS GONE NOW. OTHER SYMPTOMS CONTINUE NO FEVER OR RECENT ILLNESS PT IS NOT COVID OR FLU VACCINATED. PT STATES SHE IS SUPPOSED TO TAKE BLOOD PRESSURE MEDICATION, BUT DOES NOT TAKE IT. DOES NOT KNOW NAME OF MEDICATION OR HOW LONG IT HAS BEEN SINCE SHE HAS TAKEN ANY--STATES 'IT'S BEEN AWHILE" LMP 04/13/22. NORMAL. 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 KENDALL Allergies and Home Medications Allergies Coded Allergies: No Known Drug Allergies (Unverified , 04/11/17) Patient Home Medication List Home Medication List Reviewed: Yes Atorvastatin Calcium (Lipitor) 40 Mg Tablet, 40 MG PO HS Prescribed by: LIN GARCIA on 05/13/22 1059 Losartan Potassium (Losartan Potassium) 50 Mg Tablet, 50 MG PO 0930 Prescribed by: LIN GARCIA on 05/13/22 1059 Discontinued Medications Clindamycin HCl (Clindamycin HCl) 300 Mg Capsule, 300 MG PO QID Prescribed by: HUNTER BURGOS on 05/21/18 0649 Cyclobenzaprine HCl (Cyclobenzaprine HCl) 10 Mg Tablet, 10 MG PO BID PRN for SPASMS Prescribed by: CHERRY MENDOZA on 01/07/22 142 Hydrocodone Bit/Acetaminophen (HYDROcodone/APAP 7.5/325 TAB) 1 Each Tablet, (Rep orted) Entered as Reported by: BARBARA HEARD on 05/21/18620 Ibuprofen (Ibuprofen) 600 Mg Tablet, 600 MG PO Q6H PRN for PAIN-MILD Prescribed by: CHERRY MENDOZA on 01/07/22 142 Lidocaine (Lidocaine 5% Patch) 5 % Adh..patch, 1 EACH TP Q12H PRN for Neuropathic pain Prescribed by: CHERRY MENDOZA on 01/07/22 142 Lidocaine HCl (Lidocaine HCl Viscous) 15 Ml Solution, 1-2 ML MM Q 1-2 HOURS Prescribed by: HUNTER BURGOS on 05/21/18648 Methylprednisolone (Methylprednisolone Dose Pack) 4 Mg Tab.ds.pk, 4 MG PO UD Prescribed by: CHERRY MENDOZA on 01/07/22 142 Naproxen (Naproxen) 500 Mg Tablet, 500 MG PO BID Prescribed by: HUNTER BURGOS on 05/21/18648 Tramadol HCl (Ultram) 50 Mg Tablet, 50 MG PO Q4H Prescribed by: HUNTER BURGOS on 05/21/18648 Tramadol HCl (Tramadol HCl) 50 Mg Tablet, 50 MG PO Q6H PRN for PAIN Prescribed by: CHERRY MENDOZA on 01/07/221424 Review of Systems Review of Systems Constitutional: No chills, No diaphoresis; dizziness; No fever Respiratory: See HPI; Denies Cough; Shortness of Air Cardiovascular: See HPI, Chest Pain; Denies Edema, Denies Irregular Heart Rate; Lightheadedness; Denies Palpitations, Denies Syncope Gastrointestinal: No Symptoms Reported; Denies Abdominal Pain, Denies Diarrhea, Denies Nausea, Denies Vomiting Genitourinary: No Symptoms Reported Musculoskeletal: see HPI, back pain Skin: no symptoms reported Psychiatric/Neurological: See HPI, Anxiety, Headache; Denies Numbness, Denies Paresthesia, Denies Seizure, Denies Tingling, Denies Tremors, Denies Weakness Endocrine: No Symptoms Reported Hematologic/Lymphatic: No Symptoms Reported Past Gzfbdbp-Dfxnxi-Ardhog Hx Patient Social History Tobacco Use?: Yes Smoking Status: Former Smoker Use of E-Cig and/or Vaping dev: Yes E-Cig or Vaping type used: Nicotine Use of E-Cig and/or Vaping Paul: Current Everyday User Substance use?: Yes Substance type: Marijuana Substance frequency: Daily Alcohol Use?: Yes Alcohol Frequency: Once in a while Pt feels they are or have been: No Immunizations Up To Date Tetanus Booster (TDap): Unknown Seasonal Allergies Seasonal Allergies: No Past Medical History Surgery/Hospitalization HX: TUBAL, Surgeries: Yes (BREAST REDUCTION, RIGHT SALPINGECTOMY; 2 UPPER WISDOM TEETH REMOVED) Breast, Gallbladder Respiratory: No Cardiac: Yes (BUT DOES NOT TAKE PRESCRIBED MEDICATION) Hypertension Neurological: Yes Headaches /Migraines : No Reproductive Disorders: Yes (high levels of testosterone.; RIGHT SALPINGECTOMY FOR ECTOPIC ) Female Reproductive Disorders: Menstrual Problems, Ovarian Cyst, Polycystic Ovarian Dis Sexually Transmitted Disease: No HIV/AIDS: No Genitourinary: No Gastrointestinal: Yes (S/P ROSA) Gastroesophageal Reflux, Chronic Constipation, Chronic Diarrhea, Gall Bladder Disease Musculoskeletal: Yes Chronic Back Pain Endocrine: No HEENT: Yes (CHRONIC DENTAL ISSUES) Loss of Vision: Denies Hearing Impairment: Denies Cancer: No Psychosocial: No Integumentary: No Blood Disorders: No Adverse Reaction/Blood Tranf: No Family Medical History No Pertinent Family Hx Physical Exam Vital Signs Vital Signs - First Documented 05/12/22 19:31 Temp 36.0 Pulse 66 Resp 20 B/P (MAP) 226/133 (164) Pulse Ox 95 O2 Delivery Room Air Capillary Refill : Less Than 3 Seconds Height, Weight, BMI Height: 5'5.00" Weight: 225lbs. 0oz. 102.803105fb; 41.00 BMI Method:Stated General Appearance: WD/WN, Anxious, Obese, Other (CRYING UNCONTROLLABLY, ANXIOUS AND HYPERVENTILATING ON ARRIVAL. ) Neck: Normal Inspection Respiratory: Chest Non Tender, Normal Breath Sounds, No Accessory Muscle Use, No Respiratory Distress Cardiovascular: Regular Rate, Rhythm, No Edema, No JVD, No Murmur, Normal Peripheral Pulses Gastrointestinal: Non Tender, Soft Extremity: Normal Capillary Refill, Normal Inspection, Normal Range of Motion, Non Tender, No Calf Tenderness, No Pedal Edema Neurologic/Psychiatric: Alert, Oriented x3, No Motor/Sensory Deficits, teaseler II- XII Norm as Tested Skin: Normal Color, Warm/Dry; No Rash Progress/Results/Core Measures Results/Orders Lab Results Laboratory Tests Test 05/12/22 19:36 05/12/22 19:42 05/12/22 20:35 Range/Units White Blood Count 14.9 H 4.3-11.0 10^3/uL Red Blood Count 5.07 3.80-5.11 10^6/uL Hemoglobin 14.9 11.5-16.0 g/dL Hematocrit 45 35-52 % Mean Corpuscular Volume 88 80-99 fL Mean Corpuscular Hemoglobin 29 25-34 pg Mean Corpuscular Hemoglobin Concent 33 32-36 g/dL Red Cell Distribution Width 12.8 10.0-14.5 % Platelet Count 345 130-400 10^3/uL Mean Platelet Volume 10.3 9.0-12.2 fL Immature Granulocyte % (Auto) 0 % Neutrophils (%) (Auto) 70 42-75 % Lymphocytes (%) (Auto) 22 12-44 % Monocytes (%) (Auto) 6 0-12 % Eosinophils (%) (Auto) 1 0-10 % Basophils (%) (Auto) 1 0-10 % Neutrophils # (Auto) 10.4 H 1.8-7.8 10^3/uL Lymphocytes # (Auto) 3.2 1.0-4.0 10^3/uL Monocytes # (Auto) 1.0 0.0-1.0 10^3/uL Eosinophils # (Auto) 0.2 0.0-0.3 10^3/uL Basophils # (Auto) 0.1 0.0-0.1 10^3/uL Immature Granulocyte # (Auto) 0.1 0.0-0.1 10^3/uL Prothrombin Time 13.0 12.2-14.7 SEC INR Comment 1.0 0.8-1.4 Activated Partial Thromboplast Time 33 24-35 SEC D-Dimer 0.70 H 0.00-0.49 UG/ML Sodium Level 139 135-145 MMOL/L Potassium Level 3.9 3.6-5.0 MMOL/L Chloride Level 103 98-107 MMOL/L Carbon Dioxide Level 21 21-32 MMOL/L Anion Gap 15 H 5-14 MMOL/L Blood Urea Nitrogen 9 7-18 MG/DL Creatinine 0.98 0.60-1.30 MG/DL Estimat Glomerular Filtration Rate 76 BUN/Creatinine Ratio 9 Glucose Level 118 H 70-105 MG/DL Calcium Level 9.9 8.5-10.1 MG/DL Corrected Calcium 8.5-10.1 MG/DL Magnesium Level 2.1 1.6-2.4 MG/DL Total Bilirubin 0.5 0.1-1.0 MG/DL Aspartate Amino Transf (AST/SGOT) 26 5-34 U/L Alanine Aminotransferase (ALT/SGPT) 45 0-55 U/L Alkaline Phosphatase 101 40-136 U/L Total Creatine Kinase 47 29-168 U/L Creatine Kinase MB 0.3 <6.6 NG/ML Myoglobin 17.7 10.0-92.0 NG/ML Troponin I < 0.028 <0.028 NG/ML B-Type Natriuretic Peptide 32.1 <100.0 PG/ML Total Protein 8.2 6.4-8.2 GM/DL Albumin 4.6 H 3.2-4.5 GM/DL Amylase Level 48 25-125 U/L Lipase 28 8-78 U/L Serum Test, Qualitative NEGATIVE NEGATIVE Serum Alcohol < 10 <10 MG/DL Influenza Type A (RT-PCR) Not Detected Not Detecte Influenza Type B (RT-PCR) Not Detected Not Detecte SARS-CoV-2 RNA (RT-PCR) Not Detected Not Detecte Urine Opiates Screen NEGATIVE NEGATIVE Urine Oxycodone Screen NEGATIVE NEGATIVE Urine Methadone Screen NEGATIVE NEGATIVE Urine Propoxyphene Screen NEGATIVE NEGATIVE Urine Barbiturates Screen NEGATIVE NEGATIVE Ur Tricyclic Antidepressants Screen NEGATIVE NEGATIVE Urine Phencyclidine Screen NEGATIVE NEGATIVE Urine Amphetamines Screen NEGATIVE NEGATIVE Urine Methamphetamines Screen NEGATIVE NEGATIVE Urine Benzodiazepines Screen NEGATIVE NEGATIVE Urine Cocaine Screen NEGATIVE NEGATIVE Urine Cannabinoids Screen POSITIVE H NEGATIVE My Orders Orders - HUNTER BURGOS K DO Cbc With Automated Diff (05/12/22 19:30) Magnesium (05/12/22 19:30) Chest 1 View, Ap/Pa Only (05/12/22 19:30) Ekg Tracing (05/12/22 19:30) Comprehensive Metabolic Panel (05/12/22 19:30) Myoglobin Serum (05/12/22 19:30) Protime With Inr (05/12/22 19:30) Partial Thromboplastin Time (05/12/22 19:30) O2 (05/12/22 19:30) Monitor-Rhythm Ecg Trace Only (05/12/22 19:30) Ed Iv/Invasive Line Start (05/12/22 19:30) Creatine Kinase (05/12/22:30) Creatine Kinase Mb (05/12/22:30) Lipase (05/12/22 19:30) Amylase (05/12/22 19:30) Bnp Lucretia (05/12/22:30) Fibrin Degradation Products (05/12/22:30) Troponin I Lucretia (05/12/22 19:30) Nitroglycerin 0.4 Mg Btl 25's (Nitrostat (05/12/22 19:30) Aspirin Chewable Tablet (Baby Aspirin Ch (05/12/22 19:30) Alcohol (05/12/22:30) Drug Screen Stat (Urine) (05/12/22:30) Hcg,Qualitative Serum (05/12/22:30) Covid 19 Inhouse Test (05/12/22 19:40) Influenza A And B By Pcr (05/12/22 19:40) Isolation Central Supply Req (05/12/22 19:40) Nitroglycerin Ointment (Nitrobid Ointme (05/12/22 20:00) Hydralazine Injection (Apresoline Inject (05/12/22 20:45) Ct Angio Chest W (05/12/22 20:42) Iohexol Injection (Omnipaque 350 Mg/Ml 1 (05/12/22 20:45) Received Contrast (Hold Metformin- Contr (05/12/22 20:45) Sodium Chloride Flush (Catheter Flush Sy (05/12/22 20:45) Medications Given in ED Vital Signs/I&O 05/12/22 19:31 Temp 36.0 Pulse 66 Resp 20 B/P (MAP) 226/133 (164) Pulse Ox 95 O2 Delivery Room Air Blood Pressure Mean: 164 Progress Progress Note : Progress Note BP ON ARRIVAL 226/133 PT EVENTUALLY CALMED, AND PT IS NO LONGER HYPERVENTILATING OR CRYING. BLOOD PRESSURE REMAINED ELEVATED GIVEN ASPIRIN AND NITROPASTE APPLIED FOR CHEST PAIN AND ELEVATED BLOOD PRESSURE CHEST PAIN RESOLVED, STILL HAS VERY SLIGHT ACHING IN HER BACK AND HER LEFT ARM FEELS A LITTLE HEAVY, BUT NO PAIN IN ARM NO LONGER FEELS SHORT OF BREATH BLOOD PRESSURE REMAINED ELEVATED, GIVEN HYDRALAZINE WITHOUT IMPROVEMENT STARTED ON CARDENE DRIP PT DID NOT HAVE ANY CHEST PAIN FOR REMAINDER OF ER STAY SHORTNESS OF BREATH RESOLVED NO COMPLAINTS OF HEADACHE AT ANY TIME NO NEUROLOGICAL SYMPTOMS AT ANY TIME DURING ER STAY Initial ECG Impression Date: May 12, 2022 Initial ECG Impression Time: 19:36 Initial ECG Rate: 66 Initial ECG Rhythm: Normal Sinus Diagnostic Imaging Comments CXR--PER RADIOLOGIST REPORT FINDINGS: Normal heart size and central pulmonary vascularity. No focal pulmonary opacity. No pleural effusion or pneumothorax. No acute osseous findings. IMPRESSION: No acute cardiopulmonary findings. CT CHEST ANGIOGRAM--PER RADIOLOGIST REPORT AT 2121 FINDINGS: Examination mildly limited by motion. No pulmonary artery filling defect. Normal caliber thoracic aorta. Normal heart size. No pericardial effusion. No mediastinal, hilar or axillary lymphadenopathy. The lungs are clear. No pleural effusion or pneumothorax. Osseous structures are intact. No acute finding in the visualized upper abdomen. Cholecystectomy. IMPRESSION: 1. No pulmonary emboli. 2. No acute CT finding in the chest. CT HEAD--PER RADIOLOGIST REPORT AT 2205 FINDINGS: Examination is contaminated by IV contrast from a prior CTA of the chest. No intracranial hemorrhage, mass effect, hydrocephalus or extra-axial fluid collection. No CT evidence for territorial infarction. No acute osseous finding. Paranasal sinuses and mastoids are clear. IMPRESSION: No acute intracranial CT finding. Reviewed: Reviewed by Me Departure Communication (Admissions) 2122--SPOKE WITH DR. GARCIA, HOSPITALIST, ACCEPTS PT FOR ADMIT. 2129--REPORT TO E-ICU PHYSICIAN. REQUESTS THAT PT HAVE A CT HEAD PRIOR TO GOING UPSTAIRS Impression Primary Impression: Hypertensive urgency Additional Impressions: Chest pain Headache Marijuana use Non-compliance Disposition: ADMITTED INPATIENT Condition: Improved Admissions Decision to Admit Reason: Admit from ER (General) Decision to Admit/Date: May 12, 2022 Time/Decision to Admit Time: 21:25 Departure-Patient Inst. Referrals: NO,LOCAL PHYSICIAN (PCP) Primary Care Physician SERVANDO CAMPOS APRN (Family) Primary Care Physician Scripts Atorvastatin Calcium (Lipitor) 40 Mg Tablet 40 MG PO HS, #30 TAB Prov: LIN GARCIA MD 05/13/22 Losartan Potassium (Losartan Potassium) 50 Mg Tablet 50 MG PO 30, #30 TAB Prov: LIN GARCIA MD 05/13/22 HUNTER BURGOS DO May 12, 2022 21:22
[2022-05-12] MEDS ORDERED: niCARdipine IV (Pyxis drip kit 50 MG in NS (IVPB) 230 ML IV SCH (21:30)
--- NOTE | 2022-05-12 21:57 | Diagnostic Imaging Report ---
PROCEDURE: CT head wo r/o stroke. TECHNIQUE: Multiple contiguous axial images were obtained through the brain without the use of intravenous contrast. Auto Exposure Controls were utilized during the CT exam to meet ALARA standards for radiation dose reduction. INDICATION: Stroke. Headache. COMPARISON: CTA chest 05/12/2022. FINDINGS: Examination is contaminated by IV contrast from a prior CTA of the chest. No intracranial hemorrhage, mass effect, hydrocephalus or extra-axial fluid collection. No CT evidence for territorial infarction. No acute osseous finding. Paranasal sinuses and mastoids are clear. IMPRESSION: No acute intracranial CT finding. Dictated by: Dictated on workstation # [id number]
[2022-05-12] MEDS ORDERED: NS IV 500 ML 500 ML IV PRN (23:15)
[2022-05-12] MEDS ORDERED: ONDANSETRON 4 MG/2 ML (SDV) Z0FRAN IVP PRN (23:45)
[2022-05-12] MEDS: niCARdipine IV (Pyxis drip kit 50 MG in NS (IVPB) 230 ML IV SCH (23:45)
[2022-05-12] MEDS ORDERED: morphine INJ 4 MG/ML 1 ML (VIAL/SYRINGE) IV PRN (23:45)
[2022-05-13 05:03] LABS: BASOPHILS # (AUTO) 0.1 10^3/uL (0.0-0.1); BASOPHILS % (AUTO) 1 % (0-10); EOSINOPHILS # (AUTO) 0.2 10^3/uL (0.0-0.3); EOSINOPHILS % (AUTO) 2 % (0-10); HEMATOCRIT 41 % (35-52); HEMOGLOBIN 13.7 g/dL (11.5-16.0); LYMPHOCYTES # (AUTO) 2.5 10^3/uL (1.0-4.0); LYMPHOCYTES % (AUTO) 20 % (12-44); MEAN CORPUSCULAR HEMOGLOBIN 30 pg (25-34); MEAN CORPUSCULAR HGB CONC 34 g/dL (32-36); MEAN CORPUSCULAR VOLUME 88 fL (80-99); MEAN PLATELET VOLUME 10.8 fL (9.0-12.2); MONOCYTES # (AUTO) 0.9 10^3/uL (0.0-1.0); MONOCYTES % (AUTO) 7 % (0-12); NEUTROPHILS # (AUTO) 8.7 10^3/uL (1.8-7.8); NEUTROPHILS % (AUTO) 70 % (42-75); PLATELET COUNT 273 10^3/uL (130-400); WHITE BLOOD COUNT 12.5 10^3/uL (4.3-11.0)
[2022-05-13 05:19] LABS: CHLORIDE 106 MMOL/L (98-107); POTASSIUM 3.6 MMOL/L (3.6-5.0); SODIUM 136 MMOL/L (135-145)
[2022-05-13 05:20] LABS: CALCIUM 9.2 MG/DL (8.5-10.1)
[2022-05-13 05:21] LABS: TRIGLYCERIDES 300 MG/DL (<150); VLDL CHOLESTEROL 60 MG/DL (5-40)
[2022-05-13 05:22] LABS: GLUCOSE 114 MG/DL (70-105)
[2022-05-13 05:23] LABS: CARBON DIOXIDE 19 MMOL/L (21-32)
[2022-05-13 05:24] LABS: BILIRUBIN,TOTAL 0.5 MG/DL (0.1-1.0)
[2022-05-13 05:25] LABS: PHOSPHORUS 3.3 MG/DL (2.3-4.7)
[2022-05-13 05:26] LABS: ALKALINE PHOSPHATASE 85 U/L (40-136); CHOLESTEROL 177 MG/DL (< 200); GFR ESTIMATED 114
[2022-05-13 05:27] LABS: BUN/CREATININE RATIO 11
[2022-05-13 05:28] LABS: HDL CHOLESTEROL 31 MG/DL (40-60); MAGNESIUM 1.9 MG/DL (1.6-2.4)
[2022-05-13 05:29] LABS: ALANINE AMINOTRANSFERASE 48 U/L (0-55)
[2022-05-13] MEDS: POTASSIUM CL 10MEQ/50ML IVPB 50 ML IV SCH ×4 (05:31→07:50)
[2022-05-13] MEDS ORDERED: CATHETER FLUSH 10 ML SYR IVP SCH (06:00)
[2022-05-13] MEDS ORDERED: MAGNESIUM 1 GM/100 ML IVPB 100 ML IV SCH (06:00)
[2022-05-13] MEDS ORDERED: KCL 20 MEQ TAB (K-DUR) PO SCH (06:00)
--- NOTE | 2022-05-13 08:23 | Tele-ICU Consult ---
History of Present Illness History of Present Illness Date Seen by Provider: May 13, 2022 Time Seen by Provider: 08:17 History of Present Illness 36 yo F came to ED with CP radiating down left arm and SOB, Trop and BNP were normal, EKG ? VERN, Covid and flu serology negative, HCG negative UDS + for cannibinoids CTA was negative for pulm emb or other pathology CXR normal, Head CT showed no abnormalities BP in ED was 226/133, started on IV Nicardipine-now on hold for BP 140/90 latest BP 158/98 CP is done, breathing is ok Hx of HTN but has not been taking meds Allergies and Home Medications Allergies Coded Allergies: No Known Drug Allergies (Unverified , 04/11/17) Home Medications Atorvastatin Calcium 40 Mg Tablet, 40 MG PO HS Prescribed by: ILN GARCIA on 05/13/22 105 Clindamycin HCl 300 Mg Capsule, 300 MG PO QID Prescribed by: HUNTER BURGOS on 05/21/18648 Cyclobenzaprine HCl 10 Mg Tablet, 10 MG PO BID PRN for SPASMS Prescribed by: CHERRY MENDOZA on 01/07/22 142 Ibuprofen 600 Mg Tablet, 600 MG PO Q6H PRN for PAIN-MILD Prescribed by: CHERRY MENDOZA on 01/07/22 1424 Lidocaine 5 % Adh..patch, 1 EACH TP Q12H PRN for Neuropathic pain 2 patches max for 12 hours, then 12 hours patch-free period. Prescribed by: CHERRY MENDOZA on 01/07/22 142 Lidocaine HCl 15 Ml Solution, 1-2 ML MM Q 1-2 HOURS Prescribed by: HUNTER BURGOS on 05/21/18648 Losartan Potassium 50 Mg Tablet, 50 MG PO 0930 Prescribed by: LIN GARCIA on 05/13/22 105 Methylprednisolone 4 Mg Tab.ds.pk, 4 MG PO UD PER DOSE PACK INSTRUCTIONS Prescribed by: CHERRY MENDOZA on 01/07/22 142 Naproxen 500 Mg Tablet, 500 MG PO BID Prescribed by: HUNTER BURGOS on 05/21/18648 Tramadol HCl 50 Mg Tablet, 50 MG PO Q4H Prescribed by: HUNTER BURGOS on 05/21/18648 Tramadol HCl 50 Mg Tablet, 50 MG PO Q6H PRN for PAIN Prescribed by: CHERRY MENDOZA on 01/07/22 1420 Past Medical/Social/Family Hx Patient Social History Tobacco Use?: No Smoking Status: Former Smoker Smokeless Tobacco Frequency: Never a User Use of E-Cig and/or Vaping dev: Yes E-Cig or Vaping type used: Nicotine E-Cig and/or Vaping Freq: Never a User Substance use?: No Alcohol Use?: No Alcohol Frequency: Once in a while Pt stated abuse/neglect: No Immunizations Up To Date Influenza Vaccine Up-to-Date: No; Not Current Tetanus Booster (TDap): Less Than 5 Years Current Status Advance Directives: No Communicates: Verbally Primary Language: German Preferred Spoken Language: German Implanted or Applied Medical D: CPAP Review of Systems Constitutional: see HPI EENTM: see HPI Respiratory: see HPI Cardiovascular: see HPI Gastrointestinal: see HPI Genitourinary: see HPI Musculoskeletal: see HPI Skin: see HPI Psychiatric/Neurological: See HPI Focused Exam Height, Weight, BMI Height: 5'5.00" Weight: 225lbs. 0oz. 102.674362ph; 42.33 BMI Method:Stated Exam Exam Patient acknowledged, consented, and participated in this virtual visit which was conducted using real time audio/video Vital Signs Date Time Temp Pulse Resp B/P (MAP) Pulse Ox O2 Delivery O2 Flow Rate FiO2 05/13/22 08:00 85 18 158/98 (118) 98 Room Air 05/13/22 07:00 68 14 154/87 (109) 98 Room Air 05/13/22 07:00 63 05/13/22 06:00 73 14 120/72 (88) 96 Room Air 05/13/22 05:00 72 13 147/74 (98) 97 Room Air 05/13/22 04:00 74 15 140/99 (113) 97 Room Air 05/13/22 03:28 36.4 05/13/22 03:00 84 19 137/90 (106) 95 Room Air 05/13/22 02:00 89 15 137/93 (108) 96 Room Air 05/13/22 01:00 92 05/13/22 01:00 92 11 136/94 (108) 98 Room Air 05/13/22 00:52 97 115/84 05/13/22 00:19 104 148/98 05/13/22 00:00 113 15 149/96 (113) 97 Room Air 05/12/22 23:36 36.8 101 18 152/127 (135) 97 Room Air 05/12/22 23:02 90 05/12/22 22:58 99 Room Air 05/12/22 22:45 92 15 168/135 97 Room Air 05/12/22 21:56 85 208/141 05/12/22 19:31 36.0 66 20 226/133 (164) 95 Room Air I & O 05/13/22 07:00 Intake Total 100 ml Output Total 600 ml Balance -500 ml Height & Weight Height: 5'5.00" Weight: 225lbs. 0oz. 102.818891yq; 42.33 BMI Method:Stated General Appearance: No Apparent Distress HEENT: PERRL/EOMI Respiratory: Lungs Clear, Decreased Breath Sounds Cardiovascular: Regular Rate, Rhythm, No Edema Capillary Refill: Less Than 3 Seconds Gastrointestinal: normal bowel sounds, non tender, soft Neurologic/Psychiatric: Oriented x3, No Motor/Sensory Deficits Results Lab Laboratory Tests 05/12/22 19:36 05/13/22 04:20 Assessment/Plan Assessment/Plan HTN crisis, will continue on IV nicardipine if needed and transition to oral me ds Was taking an ARB, will give lorsatan 50 mg/d Critical Care: Critically Ill Patient Time spent with patient (mins): 30 JORJE JACOBS MD May 13, 2022 08:23
[2022-05-13] MEDS ORDERED: ASPIRIN E.C. 81 MG (ECOTRIN) TAB PO SCH (09:00)
--- NOTE | 2022-05-13 09:19 | History & Physical ---
History of Present Illness History of Present Illness Reason for visit/HPI Reason for visit: HPI: Shweta is a 36yo F with a past medical history of htn, migraines, PCOS, chronic back pain, chronic diarrhea, and chronic constipation. She has no cardiac history and has never seen a brick mason. She presented to the [place] ER yesterday with chest pain. She was at a volleyball game yesterday when she developed a severe headache. She took a friends Sumitriptan and a few minutes after taking the medication she became diaphoretic, SOB, and developed L sided chest pressure that radiated down her left arm. In the ER she had a blood pressure of 226/133. D-dimer was elevated at 0.7, WBC was 14.9, troppnin and BNP were not elevated. There were no signs of end organ damage. UDS was positive for cannabinoids. CT angiogram was negative for PE or acute findings. Head CT and chest X-ray were negative for acute findings. The patient was laying in bed awake at the beginning of the interview. She has not had any chest pain since arriving to the ER yesterday. She denies having palpitations, SOB, and edema. Date of Admission May 12, 2022 at 21:25 Date Seen by a Provider: May 13, 2022 Time Seen by a Provider: 08:30 I consulted on this patient on 05/13/22 09:10 Attending Physician Brenda Fuentes Aprn Admitting Physician Admitting Physician: Lin Yang MD Attending Physician: Ashish Cardona MD Consult Allergies and Home Medications Allergies Coded Allergies: No Known Drug Allergies (Unverified , 04/11/17) Patient Home Medication List Atorvastatin Calcium (Lipitor) 40 Mg Tablet, 40 MG PO HS Prescribed by: LIN YANG on 05/13/22 1059 Clindamycin HCl (Clindamycin HCl) 300 Mg Capsule, 300 MG PO QID Prescribed by: HUNTER BURGOS on 05/21/18 0649 Cyclobenzaprine HCl (Cyclobenzaprine HCl) 10 Mg Tablet, 10 MG PO BID PRN for SPASMS Prescribed by: CHERRY MENDOZA on 01/07/22 1424 Hydrocodone Bit/Acetaminophen (HYDROcodone/APAP 7.5/325 TAB) 1 Each Tablet, (Reported) Entered as Reported by: BARBARA HEARD on 05/21/18 0621 Ibuprofen (Ibuprofen) 600 Mg Tablet, 600 MG PO Q6H PRN for PAIN-MILD Prescribed by: CHERRY MENDOZA on 01/07/22 142 Lidocaine (Lidocaine 5% Patch) 5 % Adh..patch, 1 EACH TP Q12H PRN for Neuropathic pain Prescribed by: CHERRY MENDOZA on 01/07/22 142 Lidocaine HCl (Lidocaine HCl Viscous) 15 Ml Solution, 1-2 ML MM Q 1-2 HOURS Prescribed by: HUNTER BURGOS on 05/21/18 0649 Losartan Potassium (Losartan Potassium) 50 Mg Tablet, 50 MG PO 0930 Prescribed by: LIN YANG on 05/13/22 105 Methylprednisolone (Methylprednisolone Dose Pack) 4 Mg Tab.ds.pk, 4 MG PO UD Prescribed by: CHERRY MENDOZA on 01/07/22 142 Naproxen (Naproxen) 500 Mg Tablet, 500 MG PO BID Prescribed by: HUNTER BURGOS on 05/21/18 0649 Tramadol HCl (Ultram) 50 Mg Tablet, 50 MG PO Q4H Prescribed by: HUNTER BURGOS on 05/21/18 0649 Tramadol HCl (Tramadol HCl) 50 Mg Tablet, 50 MG PO Q6H PRN for PAIN Prescribed by: CHERRY MENDOZA on 01/07/22 142 Past Ednuhtc-Gjpset-Vbiifn Hx Patient Social History Tobacco Use?: No Smoking Status: Former Smoker Smokeless Tobacco Frequency: Never a User Use of E-Cig and/or Vaping dev: Yes E-Cig or Vaping type used: Nicotine Use of E-Cig and/or Vaping Paul: Never a User Substance use?: No Alcohol Use?: No Alcohol Frequency: Once in a while Pt feels they are or have been: No Immunizations Up To Date Tetanus Booster (TDap): Less Than 5 Years Seasonal Allergies Seasonal Allergies: No Current Status Advance Directives: No Communicates: Verbally Primary Language: Libyan Preferred Spoken Language: Libyan Implanted or Applied Medical D: CPAP Past Medical History Surgeries: Breast, Gallbladder Headaches /Migraines Sexually Transmitted Disease: No HIV/AIDS: No Gastroesophageal Reflux, Chronic Constipation, Chronic Diarrhea, Gall Bladder Disease Chronic Back Pain Loss of Vision: Denies Hearing Impairment: Denies Blood Disorders: No Adverse Reaction/Blood Tranf: No Family Medical History No Pertinent Family Hx Review of Systems Constitutional: No chills, No diaphoresis, No dizziness, No fever, No weakness EENTM: No hearing loss, No blurred vision, No double vision, No vision loss, No nose congestion, No throat pain Respiratory: No cough, No dyspnea on exertion, No phlegm, No short of breath Cardiovascular: No chest pain, No edema, No palpitations, No syncope Gastrointestinal: No abdominal pain; diarrhea; No loss of appetite, No nausea, No vomiting Genitourinary: No dysuria, No frequency Musculoskeletal: No joint pain, No joint swelling, No muscle pain, No muscle weakness Skin: No change in color, No rash Psychiatric/Neurological: Denies Headache, Denies Numbness, Denies Tremors, Denies Weakness Physical Exam Vital Signs Vital Signs - First Documented 05/12/22 19:31 Temp 36.0 Pulse 66 Resp 20 B/P (MAP) 226/133 (164) Pulse Ox 95 O2 Delivery Room Air Capillary Refill : Less Than 3 Seconds Height, Weight, BMI Height: 5'5.00" Weight: 225lbs. 0oz. [id number]; 42.33 BMI Method:Stated General Appearance: No Apparent Distress, WD/WN HEENT: Pharynx Normal, Moist Mucous Membranes Neck: Full Range of Motion, Non Tender, Supple Respiratory: Chest Non Tender, Lungs Clear, Normal Breath Sounds, No Accessory Muscle Use, No Respiratory Distress Cardiovascular: Regular Rate, Rhythm, No Edema, No JVD, No Murmur, Normal Peripheral Pulses (3+ bilateral radialis and dorsalis pedis) Gastrointestinal: No Organomegaly, No Pulsatile Mass, Non Tender, Soft Back: Normal Inspection, No Vertebral Tenderness Extremity: Normal Capillary Refill, Normal Range of Motion, Non Tender, No Calf Tenderness, No Pedal Edema Neurologic/Psychiatric: Alert, Oriented x3, No Motor/Sensory Deficits, Normal Mood/Affect, transportation aid II-XII Norm as Tested Skin: Normal Color, Warm/Dry Assessment/Plan Assessment and Plan Hypertensive urgency Patient is no longer symptomatic No signs of end organ damage BP has been less than 170/100 Start home medications along with a thiazide Patient is on telemetry Consult cardiology Chest pain 0.4mg nitroglycerin PRN Aspirin 81mg 1xD Clinical Quality Measures AMI/AHF: ASA po Prior to arrival: KENNEDY Stokes 7, 2022 09:19
[2022-05-13] MEDS ORDERED: LOSARTAN 50 MG (COZAAR) TAB PO NR (09:30)
[2022-05-13 09:45] VITALS: BP 153/102
[2022-05-13] MEDS: niCARdipine IV (Pyxis drip kit 50 MG in NS (IVPB) 230 ML IV SCH (09:45)
[2022-05-13] MEDS ORDERED: ATOR40TA PO (10:59)
[2022-05-13] MEDS ORDERED: LOSA50TA63 PO (10:59)
--- NOTE | 2022-05-13 11:00 | Discharge Inst-Simple/Standard ---
Discharge Inst-Standard Discharge Medications New, Converted or Re-Newed RX: Transmitted to Pharmacy Patient Instructions/Follow Up Plan of Care/Instructions/FU: Please continue to take your medications as written. Please follow up with your primary care doctor to follow up this hospital stay. Activity as Tolerated: Yes Discharge Diet: Cardiac Diet Return to The Hospital For: Chest pain, shortness of breath, fever, weakness, if you feel you are getting worse. LIN GARCIA MD May 13, 2022 11:00 am
--- NOTE | 2022-05-13 11:12 | Short Stay Summary ---
KENNDEY BOWER 05/13/22 1112: History of Present Illness History of Present Illness Reason for visit/HPI Reason for visit: Hypertensive emergency HPI: Shweta is a 36yo F with a past medical history of htn, migraines, PCOS, chronic back pain, chronic diarrhea, and chronic constipation. She has no c ardiac history and has never seen a commercial underwriter. She presented to the [place] ER yesterday with chest pain. She was at a volleyball game yesterday when she developed a severe headache. She took a friends Sumitriptan and a few minutes after taking the medication she became diaphoretic, SOB, and developed L sided chest pressure that radiated down her left arm. In the ER she had a blood pressure of 226/133. The patient reports that she has not taken her blood pressure medication in a few weeks. D-dimer was elevated at 0.7, WBC was 14.9, troppnin and BNP were not elevated. There were no signs of end organ damage. UDS was positive for cannabinoids. CT angiogram was negative for PE or acute findings. Head CT and chest X-ray were negative for acute findings. Patient was admitted for hypertensive emergency. The patient was laying in bed awake at the beginning of the interview. She has not had any chest pain since arriving to the ER yesterday. She denies having palpitations, SOB, and edema. Date of Admission May 12, 2022 at 21:25 Date of Discharge May 13, 2022 Time Seen by Provider: 10:00 Attending Physician Brenda Fuentes Aprn Admitting Physician Admitting Physician: Lin Yang MD Attending Physician: Ephraim Cardona MD Consult Allergies and Home Medications Allergies Coded Allergies: No Known Drug Allergies (Unverified , 04/11/17) Patient Home Medication List Atorvastatin Calcium (Lipitor) 40 Mg Tablet, 40 MG PO HS Prescribed by: LIN YANG on 05/13/22 1059 Losartan Potassium (Losartan Potassium) 50 Mg Tablet, 50 MG PO 0930 Prescribed by: LIN YANG on 05/13/22 1059 Discontinued Medications Clindamycin HCl (Clindamycin HCl) 300 Mg Capsule, 300 MG PO QID Prescribed by: HUNTER BURGOS on 05/21/18 0649 Cyclobenzaprine HCl (Cyclobenzaprine HCl) 10 Mg Tablet, 10 MG PO BID PRN for SPASMS Prescribed by: CHERRY MENDOZA on 01/07/22 142 Hydrocodone Bit/Acetaminophen (HYDROcodone/APAP 7.5/325 TAB) 1 Each Tablet, (Reported) Entered as Reported by: BARBARA HEARD on 05/21/18 06 Ibuprofen (Ibuprofen) 600 Mg Tablet, 600 MG PO Q6H PRN for PAIN-MILD Prescribed by: CHERRY MENDOZA on 01/07/22 142 Lidocaine (Lidocaine 5% Patch) 5 % Adh..patch, 1 EACH TP Q12H PRN for Neuropathic pain Prescribed by: CHERRY MENDOZA on 01/07/22 142 Lidocaine HCl (Lidocaine HCl Viscous) 15 Ml Solution, 1-2 ML MM Q 1-2 HOURS Prescribed by: HUNTER BURGOS on 05/21/18 0649 Methylprednisolone (Methylprednisolone Dose Pack) 4 Mg Tab.ds.pk, 4 MG PO UD Prescribed by: CHERRY MENDOZA on 01/07/22 142 Naproxen (Naproxen) 500 Mg Tablet, 500 MG PO BID Prescribed by: HUNTER BURGOS on 05/21/1849 Tramadol HCl (Ultram) 50 Mg Tablet, 50 MG PO Q4H Prescribed by: HUNTER BURGOS on 05/21/1849 Tramadol HCl (Tramadol HCl) 50 Mg Tablet, 50 MG PO Q6H PRN for PAIN Prescribed by: CHERRY MENDOZA on 01/07/22 142 Past Bioeuao-Zahxqu-Zvnimb Hx Patient Social History Marrital Status: Living Status: Lives at home with Employed/Student: employed Alcohol Beverage of Choice: Beer Smoking Status: Current Everyday Smoker (Vapes) 2nd Hand Smoke Exposure: Yes Recent Hopitalizations: No Have you traveled recently?: No Alcohol Use?: Yes (Occasionally) Substance type: Caffeine (1 cup a day) Pt feels they are or have been: No Immunizations Up To Date Tetanus Booster (TDap): Unknown Pediatric: No Seasonal Allergies Seasonal Allergies: No Surgeries Yes (BREAST REDUCTION, RIGHT SALPINGECTOMY; 2 UPPER WISDOM TEETH REMOVED) Breast, Gallbladder, Tubal Ligation Respiratory No Currently Using CPAP: No Currently Using BIPAP: No Cardiovascular Yes Hypertension Neurological Yes Headaches /Migraines Reproductive System Hx Reproductive Disorders: Yes (high levels of testosterone.) Sexually Transmitted Disease: No HIV/AIDS: No Female Reproductive Disorders: Menstrual Problems, Ovarian Cyst, Polycystic Ovarian Dis Genitourinary No Gastrointestinal Yes Gastroesophageal Reflux, Chronic Constipation, Chronic Diarrhea, Gall Bladder Disease Musculoskeletal Yes Chronic Back Pain Endocrine History of Endocrine Disorders: No HEENT History of HEENT Disorders: No Loss of Vision: Denies Hearing Impairment: Denies Cancer No Psychosocial History of Psychiatric Problem: No Integumentary History of Skin or Integumenta: No Blood Transfusions History of Blood Disorders: No Adverse Reaction to a Blood Tr: No Family Medical History Significant Family History: No Pertinent Family Hx Review of Systems Constitutional: No chills, No diaphoresis, No dizziness, No fever, No weakness EENTM: No hearing loss, No blurred vision, No double vision, No vision loss, No nose congestion, No throat pain Respiratory: No cough, No dyspnea on exertion, No phlegm, No short of breath Cardiovascular: No chest pain, No edema, No palpitations, No syncope Gastrointestinal: No abdominal pain, No constipation; diarrhea; No loss of appetite, No nausea, No vomiting Genitourinary: No dysuria, No frequency Musculoskeletal: No joint pain, No joint swelling, No muscle pain, No muscle stiffness Skin: No change in color, No rash Psychiatric/Neurological: Denies Headache, Denies Numbness, Denies Paresthesia, Denies Tingling Physical Exam Vital Signs Vital Signs - First Documented 05/12/22 19:31 Temp 36.0 Pulse 66 Resp 20 B/P (MAP) 226/133 (164) Pulse Ox 95 O2 Delivery Room Air Capillary Refill : Less Than 3 Seconds Height, Weight, BMI Height: 5'5.00" Weight: 225lbs. 0oz. [id number]; 42.33 BMI Method:Stated General Appearance: No Apparent Distress, WD/WN HEENT: Pharynx Normal, Moist Mucous Membranes Neck: Full Range of Motion, Normal Inspection, Non Tender, Supple Respiratory: Chest Non Tender, Lungs Clear, Normal Breath Sounds, No Accessory Muscle Use, No Respiratory Distress Cardiovascular: Regular Rate, Rhythm, No Edema, No Murmur, Normal Peripheral Pulses Gastrointestinal: No Organomegaly, No Pulsatile Mass, Non Tender, Soft Back: Normal Inspection, No Vertebral Tenderness Extremity: Normal Capillary Refill, Normal Inspection, Normal Range of Motion, Non Tender, No Calf Tenderness, No Pedal Edema Neurologic/Psychiatric: Alert, Oriented x3, No Motor/Sensory Deficits, Normal Mood/Affect, switch maker II-XII Norm as Tested Skin: Normal Color, Warm/Dry Clinical Quality Measures Admission Status Admission Dx 1) Hypertensive urgency Patient is no longer symptomatic No signs of end organ damage BP has been less than 170/100 Start home medications losartan 50mg 1xD Patient is on telemetry 2) Chest pain 0.4mg nitroglycerin PRN Aspirin 81mg 1xD 3) Hyperlipidemia Will be discharged with a prescription for Rosuvastatin [id number] AMI/AHF: ASA po Prior to arrival: No Short Stay Diagnosis Discharge Diagnosis-Short Stay Admission Diagnosis: Hypertensive emergency Final Discharge Diagnosis: Hypertensive emergency Conclusion Labs Laboratory Tests 05/12/22 19:36: White Blood Count 14.9H, Red Blood Count 5.07, Hemoglobin 14.9, Hematocrit 45, Mean Corpuscular Volume 88, Mean Corpuscular Hemoglobin 29, Mean Corpuscular Hemoglobin Concent 33, Red Cell Distribution Width 12.8, Platelet Count 345, Mean Platelet Volume 10.3, Immature Granulocyte % (Auto) 0, Neutrophils (%) (Auto) 70, Lymphocytes (%) (Auto) 22, Monocytes (%) (Auto) 6, Eosinophils (%) (Auto) 1, Basophils (%) (Auto) 1, Neutrophils # (Auto) 10.4H, Lymphocytes # (Auto) 3.2, Monocytes # (Auto) 1.0, Eosinophils # (Auto) 0.2, Basophils # (Auto) 0.1, Immature Granulocyte # (Auto) 0.1, Prothrombin Time 13.0, INR Comment 1.0, Activated Partial Thromboplast Time 33, D-Dimer 0.70H, Sodium Level 139, Potassium Level 3.9, Chloride Level 103, Carbon Dioxide Level 21, Anion Gap 15H, Blood Urea Nitrogen 9, Creatinine 0.98, Estimat Glomerular Filtration Rate 76, BUN/Creatinine Ratio 9, Glucose Level 118H, Calcium Level 9.9, Corrected Calcium , Magnesium Level 2.1, Total Bilirubin 0.5, Aspartate Amino Transf (AST/SGOT) 26, Alanine Aminotransferase (ALT/SGPT) 45, Alkaline Phosphatase 101, Total Creatine Kinase 47, Creatine Kinase MB 0.3, Myoglobin 17.7, Troponin I < 0.028, B-Type Natriuretic Peptide 32.1, Total Protein 8.2, Albumin 4.6H, Amylase Level 48, Lipase 28, Serum Test, Qualitative NEGATIVE, Serum Alcohol < 10 05/12/22 19:42: Influenza Type A (RT-PCR) Not Detected, Influenza Type B (RT-PCR) Not Detected, SARS-CoV-2 RNA (RT-PCR) Not Detected 05/12/22 20:35: Urine Opiates Screen NEGATIVE, Urine Oxycodone Screen NEGATIVE, Urine Methadone Screen NEGATIVE, Urine Propoxyphene Screen NEGATIVE, Urine Barbiturates Screen NEGATIVE, Ur Tricyclic Antidepressants Screen NEGATIVE, Urine Phencyclidine Screen NEGATIVE, Urine Amphetamines Screen NEGATIVE, Urine Methamphetamines Screen NEGATIVE, Urine Benzodiazepines Screen NEGATIVE, Urine Cocaine Screen NEGATIVE, Urine Cannabinoids Screen POSITIVEH 05/13/22 01:42: Troponin I < 0.028 05/13/22 04:20: White Blood Count 12.5H, Red Blood Count 4.58, Hemoglobin 13.7, Hematocrit 41, Mean Corpuscular Volume 88, Mean Corpuscular Hemoglobin 30, Mean Corpuscular Hemoglobin Concent 34, Red Cell Distribution Width 12.7, Platelet Count 273, Mean Platelet Volume 10.8, Immature Granulocyte % (Auto) 1, Neutrophils (%) (Auto) 70, Lymphocytes (%) (Auto) 20, Monocytes (%) (Auto) 7, Eosinophils (%) (Auto) 2, Basophils (%) (Auto) 1, Neutrophils # (Auto) 8.7H, Lymphocytes # (Auto) 2.5, Monocytes # (Auto) 0.9, Eosinophils # (Auto) 0.2, Basophils # (Auto) 0.1, Immature Granulocyte # (Auto) 0.1, Sodium Level 136, Potassium Level 3.6, Chloride Level 106, Carbon Dioxide Level 19L, Anion Gap 11, Blood Urea Nitrogen 8, Creatinine 0.70, Estimat Glomerular Filtration Rate 114, BUN/Creatinine Ratio 11, Glucose Level 114H, Calcium Level 9.2, Corrected Calcium 9.2, Phosphorus Level 3.3, Magnesium Level 1.9, Total Bilirubin 0.5, Aspartate Amino Transf (AST/SGOT) 40H, Alanine Aminotransferase (ALT/SGPT) 48, Alkaline Phosphatase 85, Troponin I < 0.028, Total Protein 7.0, Albumin 4.0, Triglycerides Level 300H, Cholesterol Level 177, LDL Cholesterol Direct 117, VLDL Cholesterol 60H, HDL Cholesterol 31L Conclusion/Plan The patient was given nitroglycerin and hydralazine to lower her blood pressure along with nitroglycerin and aspirin for her chest pain. Her chest pain and SOB stopped once she began treatment in the ER. She was admitted over night while her blood pressure was gradually decreased. Patient was asymptomatic this morning and had no signs of end organ damage. This morning her systolic BP was in the 160s and 150s while diastolic BP was in the 90s. Her home hypertensive medication oral losartan 50mg 1xD was restarted. As long as patient's blood pressure stays below 160/100 she can be discharged home this afternoon. Patient had elevated triglycerides and LDL so she will be sent home with Rosuvastatin 20mg 1xD. Patient should follow up with her primary care doctor sometime in the next week to ensure that her blood pressure is being controlled. Copy Copies To 1: EPHRAIM CARDONA MD, KATELYN M MD 05/13/22 1310: Allergies and Home Medications Allergies Coded Allergies: No Known Drug Allergies (Unverified , 04/11/17) Patient Home Medication List Home Medication List Reviewed: Yes Atorvastatin Calcium (Lipitor) 40 Mg Tablet, 40 MG PO HS Prescribed by: LIN YANG on 05/13/22 1059 Losartan Potassium (Losartan Potassium) 50 Mg Tablet, 50 MG PO 0930 Prescribed by: LIN YANG on 05/13/22 1059 Discontinued Medications Clindamycin HCl (Clindamycin HCl) 300 Mg Capsule, 300 MG PO QID Prescribed by: HUNTER BURGOS on 05/21/18 0649 Cyclobenzaprine HCl (Cyclobenzaprine HCl) 10 Mg Tablet, 10 MG PO BID PRN for SPASMS Prescribed by: CHERRY MENDOZA on 01/07/22 1424 Hydrocodone Bit/Acetaminophen (HYDROcodone/APAP 7.5/325 TAB) 1 Each Tablet, (Reported) Entered as Reported by: BARBARA HEARD on 05/21/18 0621 Ibuprofen (Ibuprofen) 600 Mg Tablet, 600 MG PO Q6H PRN for PAIN-MILD Prescribed by: CHERRY MENDOZA on 01/07/22 1424 Lidocaine (Lidocaine 5% Patch) 5 % Adh..patch, 1 EACH TP Q12H PRN for Neuropathic pain Prescribed by: CHERRY MENDOZA on 01/07/22 1424 Lidocaine HCl (Lidocaine HCl Viscous) 15 Ml Solution, 1-2 ML MM Q 1-2 HOURS Prescribed by: HUNTER BURGOS on 05/21/18 0649 Methylprednisolone (Methylprednisolone Dose Pack) 4 Mg Tab.ds.pk, 4 MG PO UD Prescribed by: CHERRY MENDOZA on 01/07/22 142 Naproxen (Naproxen) 500 Mg Tablet, 500 MG PO BID Prescribed by: HUNTER BURGOS on 05/21/1849 Tramadol HCl (Ultram) 50 Mg Tablet, 50 MG PO Q4H Prescribed by: HUNTER BURGOS on 05/21/1849 Tramadol HCl (Tramadol HCl) 50 Mg Tablet, 50 MG PO Q6H PRN for PAIN Prescribed by: CHERRY MENDOZA on 01/07/22 1425 Short Stay Diagnosis Discharge Diagnosis-Short Stay Admission Diagnosis: HTN Emergency Final Discharge Diagnosis: HTN Emergency Conclusion Conclusion/Plan Patient was admitted to the hospital secondary to hypertensive emergency. She is found to be incredibly hypertensive with chest pain.'s were trended and were negative. They attempted to control her blood pressure in the emergency department with IV hydralazine but could not get her systolic under 200. She was admitted to the ICU on a Cardene drip. Her blood pressures improved and she was transitioned to oral medications. She had been noncompliant with her medications at home prior to this. Refills were sent for her to her pharmacy for antihypertensives and she was also started on a statin for hyperlipidemia. Her blood pressure improved and maintained in the 150s off of the Cardene drip. She was discharged home in stable and improved condition to follow-up with her primary care provider to follow-up this hospital stay. Copy Copies To 1: EPHRAIM CARDONA MD Supervisory-Addendum Brief Verification & Attestation Participated in pt care: history, MDM, physical Personally performed: exam, history, MDM, supervision of care Care discussed with: Medical Student Procedures: n/a Results interpretation: Verified all documentation Verification and Attestation of Medical Student E/M Service A medical student performed and documented this service in my presence. I reviewed and verified all information documented by the medical student and made modifications to such information, when appropriate. I personally performed the physical exam and medical decision making. Lin Yang, May 13, 2022,13:09 KENNEDY BOWER May 13, 2022 11:12 LIN YANG MD May 13, 2022 13:10
[2022-05-13] MEDS ORDERED: ACETAMINOPHEN 500 MG TAB (TYLENOL) PO PRN (13:00)
== END 2022-05-13 13:10 | disposition home or self-care (01) ==
LOC: EDUNIT# 19:26 → ER 19:28 → UNDOADMOB 21:25 → ICU 21:25 → UNDODISOB 05-13 13:49
PROVIDERS: ADMIT Family Medicine; ATTEND Internal Medicine
DX: I16.1 Hypertensive emergency (principal); I16.0 Hypertensive urgency; R07.9 Chest pain, unspecified; E78.5 Hyperlipidemia, unspecified; F17.290 Nicotine dependence, other tobacco product, uncomplicated
CPT/HCPCS: 70450; 71045; 71275; 80053 ×2; 80061; 80306; 82150; 82550; 82553; 83690; 83735 ×2; 83874; 83880; 84100; 84484 ×2; 84703; 85025 ×2; 85379; 85610; 85730; 87081; 87636; 93005 ×2; 93041; 96374; 96375 ×2; 96376; 99285; G0480; 36415; 80320; G0378

== ENCOUNTER 2023-01-10 18:04 | Emergency (ER) | payer OTHER ==
[~2023-01-10 18:04] MED LIST changes: +ATOR40TA PO; +LIDO15SO3 MM; -LIDO20SO23 MM; +LOSA50TA63 PO
[2023-01-10] MEDS ORDERED: diphenhydrAMINE 50 MG/ML INJ (BENADRYL) IVP STA (18:21)
[2023-01-10] MEDS ORDERED: ACETAMINOPHEN 500 MG TAB (TYLENOL) PO STA (18:21)
[2023-01-10] MEDS ORDERED: LACTATED RINGERS 1,000 ML IV ONE (18:30)
[2023-01-10 18:35] LABS: BASOPHILS # (AUTO) 0.1 10^3/uL (0.0-0.1); BASOPHILS % (AUTO) 1 % (0-10); EOSINOPHILS % (AUTO) 0 % (0-10); HEMATOCRIT 41 % (35-52); HEMOGLOBIN 14.1 g/dL (11.5-16.0); LYMPHOCYTES # (AUTO) 0.8 10^3/uL (1.0-4.0); LYMPHOCYTES % (AUTO) 12 % (12-44); MEAN CORPUSCULAR HEMOGLOBIN 30 pg (25-34); MEAN CORPUSCULAR HGB CONC 35 g/dL (32-36); MEAN CORPUSCULAR VOLUME 87 fL (80-99); MEAN PLATELET VOLUME 9.6 fL (9.0-12.2); MONOCYTES # (AUTO) 0.3 10^3/uL (0.0-1.0); MONOCYTES % (AUTO) 5 % (0-12); NEUTROPHILS # (AUTO) 5.2 10^3/uL (1.8-7.8); NEUTROPHILS % (AUTO) 81 % (42-75); PLATELET COUNT 233 10^3/uL (130-400); WHITE BLOOD COUNT 6.4 10^3/uL (4.3-11.0)
--- NOTE | 2023-01-10 18:39 | ED General ---
General Chief Complaint: General Problems/Pain Stated Complaint: HEADACHE / SHAKES/ FEVER/ VOMITING Nursing Triage Note: PT AMB TO [facility] 6 WITH CC OF SHAKING, FEVER, YEE, AND VOMITING SINCE 0100 THIS AM. PT REPORTS TEMP OF 100.5 AND IS UNABLE TO KEEP ANYTHING DOWN. DENIES NAUSEA AT THIS TIME. 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 PT A&OX4 History of Present Illness Date Seen by Provider: Jan 10, 2023 Time Seen by Provider: 18:14 Initial Comments 37 year old female presents for headache that began at 0300 today. She vomited once at 0400. Reports sleeping most of the day, but when she woke up, she was shakey and hot. Temp was checked on normal to 100.5. Took COVID test at home, negative but daughter did test and unsure if it was done correctly. History of migraines, usually Ibuprofen or Aleve works. 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 She has been drinking water, no vomiting. She did not eat anything today. Accucheck 94. Denies any medications or allergies. No cough or chest pain. Went to [place] and returned on December 26. Co-worker reports traveling and [place] and returning sick. Not sure if she has been tested for anything. Timing/Duration: 12 Hours Severity: Mild Associated Systoms: No Chest Pain, No Cough; Diaphoresis, Fever/Chills, Headaches; No Loss of Appetite; Malaise; No Nausea/Vomiting, No Rash, No Seizure, No Shortness of Air, No Syncope, No Weakness Allergies and Home Medications Allergies Coded Allergies: No Known Drug Allergies (Unverified , 04/11/17) Patient Home Medication List Home Medication List Reviewed: Yes Atorvastatin Calcium (Lipitor) 40 Mg Tablet, 40 MG PO HS Prescribed by: LIN GARCIA on 05/13/22 1059 Losartan Potassium (Losartan Potassium) 50 Mg Tablet, 50 MG PO 0930 Prescribed by: LIN GARCIA on 05/13/22 1059 Nitrofurantoin Monohyd/M-Cryst (Macrobid 100 mg Capsule) 100 Mg Capsule, 1 TAB PO BID Prescribed by: CLAY EWING on 01/10/232001 Review of Systems Review of Systems Constitutional: see HPI, chills, diaphoresis; No dizziness, No fever EENTM: see HPI, other (photophobia); No blurred vision, No double vision Respiratory: no symptoms reported, see HPI; No cough Cardiovascular: no symptoms reported, see HPI; No chest pain Gastrointestinal: no symptoms reported, see HPI Genitourinary: no symptoms reported, see HPI All Other Systems Reviewed Negative Unless Noted: Yes Past Bdhmyul-Musujh-Hwwqvd Hx Patient Social History Tobacco Use?: No Use of E-Cig and/or Vaping dev: Yes E-Cig or Vaping type used: Nicotine Substance use?: Yes Substance type: Marijuana Substance frequency: Daily Alcohol Use?: No Pt feels they are or have been: No Immunizations Up To Date Tetanus Booster (TDap): Unknown PED Vaccines UTD: No Seasonal Allergies Seasonal Allergies: No Past Medical History Surgery/Hospitalization HX: TUBAL, Surgeries: Yes (BREAST REDUCTION, RIGHT SALPINGECTOMY; 2 UPPER WISDOM TEETH REMOVED) Breast, Gallbladder, Tubal Ligation Respiratory: No Currently Using CPAP: No Currently Using BIPAP: No Cardiac: Yes (BUT DOES NOT TAKE PRESCRIBED MEDICATION) Hypertension Neurological: Yes Headaches /Migraines Reproductive Disorders: Yes (high levels of testosterone.; RIGHT SALPINGECTOMY FOR ECTOPIC ) Female Reproductive Disorders: Menstrual Problems, Ovarian Cyst, Polycystic Ovarian Dis Sexually Transmitted Disease: No HIV/AIDS: No Genitourinary: No Gastrointestinal: Yes (S/P ORSA) Gastroesophageal Reflux, Chronic Constipation, Chronic Diarrhea, Gall Bladder Disease Musculoskeletal: Yes Chronic Back Pain Endocrine: No HEENT: No Loss of Vision: Denies Hearing Impairment: Denies Cancer: No Psychosocial: No Integumentary: No Blood Disorders: No Adverse Reaction/Blood Tranf: No Family Medical History Reviewed Nursing Family Hx No Pertinent Family Hx Physical Exam Vital Signs Vital Signs - First Documented 01/10/23 18:13 Temp 37.0 Pulse 82 Resp 20 B/P (MAP) 151/109 (123) Pulse Ox 99 O2 Delivery Room Air Capillary Refill : Less Than 3 Seconds Height, Weight, BMI Height: 5'5.00" Weight: 225lbs. 0oz. [id number]; 42.33 BMI Method:Stated General Appearance: No Apparent Distress, WD/WN HEENT: PERRL/EOMI, TMs Normal, Normal ENT Inspection, Pharynx Normal, Moist Mucous Membranes, Other (reports pressure in temporal region bilat. ) Neck: Full Range of Motion, Normal Inspection, Non Tender, Supple Respiratory: Chest Non Tender, Lungs Clear, Normal Breath Sounds Cardiovascular: Regular Rate, Rhythm, No Murmur, Normal Peripheral Pulses Gastrointestinal: Normal Bowel Sounds, Non Tender, Soft Neurologic/Psychiatric: Alert, Oriented x3, No Motor/Sensory Deficits, Normal Mood/Affect Skin: Normal Color, Diaphoresis Progress/Results/Core Measures Suspected Sepsis SIRS Temperature: Pulse: 82 Respiratory Rate: 20 Laboratory Tests 01/10/23 18:27: White Blood Count 6.4 Blood Pressure 151 /109 Mean: 123 Laboratory Tests 01/10/23 18:27: Creatinine 0.74, Platelet Count 233, Total Bilirubin 0.9 Results/Orders Lab Results Laboratory Tests Test 01/10/23 18:17 01/10/23 18:27 01/10/23 18:29 01/10/23 18:50 Range/Units Glucometer 94 70-110 MG/DL White Blood Count 6.4 4.3-11.0 10^3/uL Red Blood Count 4.70 3.80-5.11 10^6/uL Hemoglobin 14.1 11.5-16.0 g/dL Hematocrit 41 35-52 % Mean Corpuscular Volume 87 80-99 fL Mean Corpuscular Hemoglobin 30 25-34 pg Mean Corpuscular Hemoglobin Concent 35 32-36 g/dL Red Cell Distribution Width 12.4 10.0-14.5 % Platelet Count 233 130-400 10^3/uL Mean Platelet Volume 9.6 9.0-12.2 fL Immature Granulocyte % (Auto) 0 % Neutrophils (%) (Auto) 81 H 42-75 % Lymphocytes (%) (Auto) 12 12-44 % Monocytes (%) (Auto) 5 0-12 % Eosinophils (%) (Auto) 0 0-10 % Basophils (%) (Auto) 1 0-10 % Neutrophils # (Auto) 5.2 1.8-7.8 10^3/uL Lymphocytes # (Auto) 0.8 L 1.0-4.0 10^3/uL Monocytes # (Auto) 0.3 0.0-1.0 10^3/uL Eosinophils # (Auto) 0.0 0.0-0.3 10^3/uL Basophils # (Auto) 0.1 0.0-0.1 10^3/uL Immature Granulocyte # (Auto) 0.0 0.0-0.1 10^3/uL Sodium Level 135 135-145 MMOL/L Potassium Level 3.3 L 3.6-5.0 MMOL/L Chloride Level 104 98-107 MMOL/L Carbon Dioxide Level 20 L 21-32 MMOL/L Anion Gap 11 5-14 MMOL/L Blood Urea Nitrogen 7 7-18 MG/DL Creatinine 0.74 0.60-1.30 MG/DL Estimat Glomerular Filtration Rate 106 BUN/Creatinine Ratio 9 Glucose Level 104 70-105 MG/DL Calcium Level 8.6 8.5-10.1 MG/DL Corrected Calcium 8.7 8.5-10.1 MG/DL Total Bilirubin 0.9 0.1-1.0 MG/DL Aspartate Amino Transf (AST/SGOT) 89 H 5-34 U/L Alanine Aminotransferase (ALT/SGPT) 117 H 0-55 U/L Alkaline Phosphatase 97 40-136 U/L Total Protein 6.8 6.4-8.2 GM/DL Albumin 3.9 3.2-4.5 GM/DL Influenza Type A (RT-PCR) Not Detected Not Detecte Influenza Type B (RT-PCR) Not Detected Not Detecte SARS-CoV-2 RNA (RT-PCR) Not Detected Not Detecte Urine Color ORANGE Urine Clarity CLEAR Urine pH 6.5 5-9 Urine Specific [place] 1.020 1.016-1.022 Urine Protein 1+ H NEGATIVE Urine Glucose (UA) NEGATIVE NEGATIVE Urine Ketones 2+ H NEGATIVE Urine Nitrite NEGATIVE NEGATIVE Urine Bilirubin 1+ H NEGATIVE Urine Urobilinogen 1.0 < = 1.0 MG/DL Urine Leukocyte Esterase TRACE H NEGATIVE Urine RBC (Auto) 3+ H NEGATIVE Urine RBC 5-10 H /HPF Urine WBC 0-2 /HPF Urine Squamous Epithelial Cells >50 H /HPF Urine Crystals PRESENT H /LPF Urine Amorphous Sediment RARE ADONIS URATES H /LPF Urine Bacteria TRACE /HPF Urine Casts NONE /LPF Urine Mucus LARGE H /LPF Urine Culture Indicated NO My Orders Orders - CLAY EWING Accucheck Stat ONCE (01/10/23 18:12) Urine Bedside (01/10/23 18:12) Cbc With Automated Diff (01/10/23 18:12) Comprehensive Metabolic Panel (01/10/23 18:12) Ua Culture If Indicated (01/10/23 18:12) Influenza A And B By Pcr (01/10/23 18:21) Covid 19 Inhouse Test (01/10/23 18:21) Ed Iv/Invasive Line Start (01/10/23 18:21) Lactated Ringers (Lr 1000 Ml Iv Solution (01/10/23 18:30) Diphenhydramine Injection (Benadryl Inje (01/10/23 18:21) Acetaminophen Tablet (Tylenol Tablet) (01/10/23 18:21) Urine Culture (01/10/23 19:30) Rx-Nitrofurantoin [place] (Rx-Macrobid) (01/10/23 19:51) Potassium Chloride (Tablet) (Klor Con Ta (01/10/23 19:54) Medications Given in ED Current Medications Medications Dose Ordered Sig/Erendira Route Start Time Stop Time Status Last Admin Dose Admin Lactated Ringer's 1,000 ml @ 0 mls/hr Q0M ONCE IV 01/10/23 18:30 01/10/23 18:31 DC 01/10/23 18:33 1,000 MLS/HR Vital Signs/I&O 01/10/23 18:13 Temp 37.0 Pulse 82 Resp 20 B/P (MAP) 151/109 (123) Pulse Ox 99 O2 Delivery Room Air Capillary Refill : Less Than 3 Seconds Blood Pressure Mean: 123 Point of Care Testing Finger Stick Blood Glucose: 94 Blood Glucose Action Taken: Ramon EWING NOTIFIED Progress Note : Time: 18:14 Progress Note patient assessed, will obtain labs, LR 1 L per IV, labs, UA, Bendaryl 25 mg IV and Tylenol 1,000 mg orally. 1904 patient provided urine sample. IV infusing, no complaints. 1929 patient sleeping, no distress, easy to arouse. COVID and Flu Neg 1944 UA shows UTI, patient reports headache has improved. No further complaints. Potassium 3.3. Will give oral potassium 10 mEq. Antibiotics for UTI. Discharge instructions and return precautions reviewed with her. Departure Impression Primary Impression: Headache Qualified Codes: G44.209 - Tension-type headache, unspecified, not intractable Additional Impression: Urinary tract infection Qualified Codes: N30.01 - Acute cystitis with hematuria Disposition: HOME, SELF-CARE Condition: Improved Departure-Patient Inst. Decision time for Depature: 19:30 Referrals: SERVANDO CAMPOS APRN (PCP/Family) Primary Care Physician Patient Instructions: Urinary Tract Infection, Adult (DC), Headache, Adult (DC) Add. Discharge Instructions: Take antibiotics as directed. Alternate Tylenol 650 mg and ibuprofen 600 mg every 4 hours for fever or headache. Follow-up with your primary care provider if symptoms or not improving or worsen. Increase water intake, 16 ounces every 2 hours while awake. Drink 1 cup of cranberry juice or eat 1 cup of fresh blueberries daily, take 1 cup of yogurt such as activity a daily. Return to the emergency department for new, urgent healthcare problems. All discharge instructions reviewed with patient and/or family. Voiced understanding. Scripts Nitrofurantoin Monohyd/M-Cryst (Macrobid 100 mg Capsule) 100 Mg Capsule 1 TAB PO BID for 5 Days, #10 CAP 0 Refills Prov: CLAY EWING 01/10/23 Work/School Note: Work Release Form Date Seen in the Emergency Department: Jan 10, 2023 Return to Work: Jan 11, 2023 Restrictions: No Restrictions LCAY EWING Jan 10, 2023 18:39
[2023-01-10 18:58] LABS: ALBUMIN 3.9 GM/DL (3.2-4.5); BILIRUBIN,TOTAL 0.9 MG/DL (0.1-1.0); CALCIUM 8.6 MG/DL (8.5-10.1); CREATININE SERUM 0.74 MG/DL (0.60-1.30); POTASSIUM 3.3 MMOL/L (3.6-5.0); TOTAL PROTEIN 6.8 GM/DL (6.4-8.2)
[2023-01-10 19:01] LABS: CLARITY,URINE CLEAR; COLOR,URINE ORANGE; GLUCOSE, URINE (UA) NEGATIVE (NEGATIVE); KETONES,URINE 2+ (NEGATIVE); LEUKOCYTE ESTERASE ,URINE TRACE (NEGATIVE); NITRITE,URINE NEGATIVE (NEGATIVE); PH,URINE 6.5 (5-9); PROTEIN,URINE 1+ (NEGATIVE)
[2023-01-10 19:17] LABS: BILIRUBIN,URINE 1+ (NEGATIVE)
[2023-01-10 19:20] LABS: AMORPHOUS SEDIMENT,UR RARE AMOR URATES /LPF; BACTERIA,URINE TRACE /HPF; SQUAMOUS EPITHELIAL CELL,UR >50 /HPF; WBC,URINE 0-2 /HPF
[2023-01-10] MEDS ORDERED: RX-NITROFURANTOIN 100 MG (MACROBID) CAP PPK#2 PO STA (19:51)
[2023-01-10] MEDS ORDERED: KCL 10 MEQ TAB (MICRO K) PO STA (19:54)
[2023-01-10] MEDS ORDERED: NITR-65 PO (20:02)
[2023-01-10 20:07] VITALS: BP 139/102
== END 2023-01-10 20:09 | disposition home or self-care (01) ==
LOC: EDUNIT# 18:04 → ER 18:05
DX: R51.9 Headache, unspecified (principal); N39.0 Urinary tract infection, site not specified; F17.290 Nicotine dependence, other tobacco product, uncomplicated; Z28.310 Unvaccinated for COVID-19; Z20.822 Contact with and (suspected) exposure to COVID-19
CPT/HCPCS: 36415; 80053; 81000; 82947; 84703; 85025; 87088; 87636